=== PATIENT | female | born 1935 | race Caucasian/White ===

== ENCOUNTER → 2017-10-25 | Outpatient (CLI) | payer OTHER ==
[~2017-10-25] MED LIST: ASCO100029 PO; ASPI1TAB57 PO; ATOR20TA15 PO; CALC600T5 PO; ENAL10TA PO; LEVO88TA2 PO; MAGN200T PO; OMEP20TA93 PO; OXYB5TAB8 PO; POTA-255; POTA595T PO; TIZA2TAB PO; VITA10002 PO; VITA100064 PO; VOLT1GEL16
== END ==
LOC: CPRE 11:25
PROVIDERS: ATTEND Orthopaedic Surgery
DX: M17.12 Unilateral primary osteoarthritis, left knee (principal); M79.609 Pain in unspecified limb; I10 Essential (primary) hypertension

== ENCOUNTER 2017-11-16 07:00 | Inpatient (IN) | payer OTHER, MEDICARE ==
[~2017-11-16] VITALS: Ht 152.4 cm; Wt 72.6 kg
[~2017-11-16 07:00] MED LIST changes: -OXYB5TAB8 PO; -POTA-255; -TIZA2TAB PO; -VOLT1GEL16
[2017-11-16] MEDS ORDERED: METOPROLOL TARTRATE 25 MG TAB PO PRN (08:15)
[2017-11-16] MEDS ORDERED: POVIDONE IODINE 5% (ANTISEPSIS KIT) 4 APPLICATIONS EACH NARE PRN (08:15)
[2017-11-16] MEDS ORDERED: SODIUM CHLORID 0.9% 500 ML IV PRN (08:15)
[2017-11-16] MEDS ORDERED: INSULIN HUMAN REGULAR 1,000 UNITS/10 ML VIAL SQ PRN (08:15)
[2017-11-16] MEDS ORDERED: LACTATED RINGER'S 1000 ML IV PRN (08:15)
[2017-11-16] MEDS ORDERED: CHLORHEXIDINE GLUCONATE 2 % 1 PACK (2 CLOTHS) TOPICAL PRN (08:15)
[2017-11-16] MEDS ORDERED: ceFAZolin 2 GM PREMIX 50 ML IV SCH (08:30)
[2017-11-16] MEDS ORDERED: SODIUM CHLORIDE 0.9% IV SCH ×4 (08:30)
[2017-11-16] MEDS ORDERED: EXPAREL PERI-ARTICULAR INJECTION (TOTAL VOL. 100 ML) P-ARTICULR SCH ×2 (08:30)
[2017-11-16] MEDS ORDERED: TRANEXAMIC ACID IV SCH ×4 (08:30)
[2017-11-16] MEDS ORDERED: CHLORHEXIDINE GLUCONATE 4% SOLN 120 ML BTL TOPICAL SCH (08:30)
[2017-11-16] MEDS ORDERED: GENTAMICIN SULFATE 80 MG/2 ML VIAL ONE (08:57)
[2017-11-16] MEDS ORDERED: FAT EMULSION 20% INJ 0 ML ONE (09:13)
[2017-11-16] MEDS ORDERED: BUPIVACAINE LIPOSOME PF 1.3% 20 ML VIAL ONE (09:30)
[2017-11-16 09:42] VITALS: PULSE 71
[2017-11-16] MEDS ORDERED: ZOLPIDEM TARTRATE 5 MG TAB PO PRN (09:45)
[2017-11-16] MEDS ORDERED: MAGNESIUM HYDROXIDE SUSP 30 ML CUP PO PRN (09:45)
[2017-11-16] MEDS ORDERED: TRANEXAMIC ACID INJ 0 MG in SODIUM CHLORIDE 0.9% INJ 100 ML IV SCH (09:45)
[2017-11-16] MEDS ORDERED: Post-op Orders (for Pharmacy) XX ONE (09:45)
[2017-11-16] MEDS ORDERED: MORPHINE SULFATE 2 MG/ML INJ IV PUSH PRN (09:45)
[2017-11-16] MEDS ORDERED: ACETAMINOPHEN/HYDROcodone 325 MG/7.5 MG TAB PO PRN (09:45)
--- NOTE | 2017-11-16 09:49 | HHI.FF ---
Face to Face Verification Diagnosis: (1) Status post total left knee replacement Physical Therapy Gait training Knee: Total knee, Protocol: Left, Gait training, Full weight bearing Left LE Weight Bearing: WB as tolerated Left LE Range of Motion: Active ROM (active, active-assisted and passive range of motion. Range of motion goal is 0 extension to 135 of flexion.) Nursing Nursing: Dressing changes (to start on postoperative day 7) Dressing Changes: Daily dressing change (to start on postoperative day 7), Coverderm/Primapore Additional Instructions Remove Steri-Strips on postoperative day 14. I have seen patient Chata Landeros on 11/16/17. My clinical findings support the need for the requested home health care services because: Ltd mobility - disease progression Limited ability to care for self High risk of falls I certify that my clinical findings support that this patient is homebound because: Post-op weakness Unsteady gait/balance Unsafe to leave home unassisted Trevon Garland MD ([place]) Nov 16, 2017 09:49
[2017-11-16] MEDS ORDERED: ECASA81 PO (09:50)
[2017-11-16] MEDS ORDERED: PROPOFOL 500 MG/50 ML INJ 50 ML ONE (09:58)
[2017-11-16] MEDS: LACTATED RINGER'S 1000 ML INJ 1,000 ML IV SCH ×2 (11:21→19:55)
[2017-11-16] MEDS ORDERED: LACTATED RINGER'S 1000 ML INJ 1,000 ML IV ONE (12:00)
[2017-11-16] MEDS ORDERED: PROPOFOL 200 MG/20 ML AMP IV ONE (12:00)
--- NOTE | 2017-11-16 12:36 | HHI.PR ---
Immediate Post Op Note Procedure Date: Nov 16, 2017 Pre Op Diagnosis: (1) Primary osteoarthritis of left knee Post Op Diagnosis: (1) Primary osteoarthritis of left knee Surgeon: Simone Garland M.D. Plant Operations Manager(s): JOSIAS Meek Procedure: Left total knee arthroplasty using Mil Triathlon prosthesis (uncemented) Findings: There was severe osteoarthritis in the left knee predominantly in the patellofemoral compartment but also in the lateral compartment. There are osteophytes. There is eburnation. Was loss of articular cartilage bone-on- bone. Complications: None Specimen(s) removed: None Estimated blood loss: 50 mL Anesthesia: Regional Block (adductor canal block), Spinal, Local (Exparel) Drains: Hemovac (2) IVF Tourniquet time (min at mmHg) None Patient to: PACU Patient Condition: Good Implant/Devices: SEE IMPLANT LOG (if applicable) Date/Time of Procedure: SEE SURGICAL CARE RECORD Trevon Garland MD (Charles) Nov 16, 2017 12:36
--- NOTE | 2017-11-16 12:42 | PD.OP ---
Operative Report Date of Surgery: Nov 16, 2017 Preoperative Diagnosis: (1) Primary osteoarthritis of left knee Postoperative Diagnosis: (1) Primary osteoarthritis of left knee Procedure: Left total knee arthroplasty using [place] Triathlon prosthesis (uncemented) Anesthesia: Spinal with supplemental adductor block regional and local with Exparel Surgeon: Simone Garland M.D. Occupational Therapist Assistant(s): JOSIAS Meek Operation and Findings: Indications and Findings: This 82-year-old woman has a 21 year history of left knee pain progressively worsening over the past few years. Her ambulation tolerance is 5200 feet. She has patellofemoral symptoms with difficulty standing from a seated position and ascending and descending stairs. Crepitation in her knee. She still uses O cart to lean us in order to. She has not responded to conservative measures including analgesics, anti- inflammatory agents, intra-articular corticosteroids, ambulatory aids and bracing. Physical findings showed significant genu valgum with crepitation on motion particularly in the patellofemoral joint. X-rays show severe osteoarthritis in the left knee particularly in the patellofemoral compartment but also some in the lateral compartment more than the medial compartment. There are osteophytes. There is eburnation. Operative findings: There was severe osteoarthritis in the patellofemoral joint with loss of articular cartilage eroding the lateral facet of the patella and the lateral condyle. There was significant eburnation. There were osteophytes. The remainder of the knee also had degenerative changes. The prosthesis used was a Mil Triathlon prosthesis. The femur was a size 3, cruciate retaining, uncemented. The tibial baseplate was a size 3 Tritanium with a 9 mm cruciate retaining X3 polyethylene spacer. The patella was a size 29 mm asymmetric Tritanium backed. The patient was brought to the clean-air operating suite after an adductor canal block regional had been performed. A spinal anesthetic was administered. The position was supine with a small bolster under the hip on the operative side. A pneumatic tourniquet was applied to the upper thigh. The lower extremity was then prepped with alcohol, Hibiclens and ChloraPrep and draped in the usual manner with the knee draped free. An appropriate timeout procedure was carried out. An incision was made from about 3 fingerbreadths above the superior medial pole of patella down the tibial tubercle on the medial side. The incision was deepened through the subcutaneous tissue to the retinacular structures which were exposed medially and laterally. A medial retinacular incision was then made from the superior middle pole of patella down the tibial tubercle and up into the quadriceps tendon splitting it longitudinally and the medial one third. The patella was reflected. The infrapatellar fat pad was debulked. The anterior cruciate ligament was excised. Medial and lateral meniscectomies were initiated. A fenestration was made in the distal femur for the intramedullary referencing guide. A fenestration was made in the proximal tibia for the intramedullary referencing guide. The distal femoral cutting guide and jig were then assembled for a 5, 8 mm cut. When this was in position, the cutting block was stabilized with pins. The jig was removed. The distal femoral cut was then completed with the oscillating saw. The sizing guide was then positioned in place along Whitesides line and the epicondylar axis and stabilized with pins. The femoral size was then determined with the sizing guide. The 4-in-1 cutting block was then positioned in place. Anterior and posterior cuts were made followed by posterior and anterior chamfer cuts taking care to prevent injury to ligamentous structures. Osteophytes were then trimmed from the distal femur. A bone plug was then placed into the fenestration of the distal femur. The proximal tibia was then exposed. The medial and lateral meniscectomies were completed. The extramedullary proximal tibial cutting guide was then positioned in place and stabilized for rotation. The depth of cut was then verified with a stylus referencing from the predetermined side. The cutting block was stabilized with pins. The jig was removed. The depth of cut was then verified and adjusted appropriately with the use of the spacer block. The proximal tibial cut was then made with the oscillating saw taking care to prevent injury to neurovascular and ligamentous structures. Proximal tibial bone was removed. Local anesthetic was administered with Exparel in the posterior capsule. The tibial baseplate trial was then positioned in place. After verifying the appropriate size, the base plate trial was positioned in place along with its spacer. The trial femoral component was then impacted into place. The alignment was checked. The trial tibial baseplate was then pinned in place on the tibia. Attention was directed to the patella. The patella drill guide was positioned in place for the appropriate sized patella. Patellar drilling was then carried out. The trial patella was positioned in place. The knee was taken through a range of motion which was easily 0 extension to 135 by gravity and 140 with slight pressure. The patella trial was removed. The femoral drill holes were made. The femoral trial prosthesis was removed. The tibial spacer was removed. A bone plug was placed into the proximal tibia. The tibial punch was impacted through the proximal tibial punch guide. This was all removed followed by placement of the tibial drill guide. The tibial drill holes were then made. The guide was removed. The cut ends of bone were then cleaned with pulse lavage. The tibial baseplate was then impacted into place and seated appropriately. The spacer was inserted. The the femoral component was then impacted into place and seated appropriately. The patella component was then seated with the patellar vice and tightened appropriately. The knee was taken through a range of motion which was comparable to the previous range of motion with excellent stability in flexion and extension and appropriate patellofemoral tracking. The remainder of the Exparel was then injected throughout the knee as a local anesthetic. Drains were brought out the superior lateral aspect of the suprapatellar pouch. Wound closure then commenced using 0 Vicryl interrupted [id number] sutures for the capsular and fascial structures, 2-0 Vicryl interrupted simple sutures with buried knots for the subcutaneous tissues and 4- 0 Monocryl, tenuous subcuticular closure for the skin. The wound was then dressed with Steri-Strips followed by Optifoam silver impregnated dressing. Sterile soft roll with a cooling pad and Stephen bandage from the base of the toes to mid thigh were then applied. Patient was then transferred from the operating room to the recovery room in satisfactory condition having tolerated procedure well. Counts are correct. Specimens: None. Estimated blood loss: 50 mL Trevon Garland MD ([place]) Nov 16, 2017 12:42
[2017-11-16] MEDS ORDERED: HYDR-3580 PO (12:52)
[2017-11-16] MEDS ORDERED: DO NOT ADM ANY ANTICOAGULANT DRUGS PRN (13:03)
[2017-11-16] MEDS ORDERED: MIDAZOLAM HCL 2 MG/2 ML VIAL ONE (13:14)
[2017-11-16] MEDS ORDERED: MEPERIDINE HCL 25 MG/ML VIAL ONE (14:45)
[2017-11-16] MEDS: KETOROLAC TROMETHAMINE 30 MG/ML (IVP) VIAL IVP SCH ×2 (15:11→19:56)
--- NOTE | 2017-11-16 15:25 | PD.CONS ---
HPI Service [facility] Consult Requested By Primary Care Physician Asha Lopez MD Diagnoses: History of Present Illness Mrs. Landeros is an 82 year old female. She is here for an elective Left Knee replacement surgery. I am seeing her post op and she is doing well thus far with pain control and no nausea/vomiting. No exacerbations of her underlying medical conditions are present when seen. No complaints from the patient. He reports this is her first major surgery. Review of Systems Constitutional: DENIES: Fatigue, Fever, Chills, Change in appetite Eyes: DENIES: Blurred vision, Diplopia, Eye inflammation Ears, nose, mouth, throat: DENIES: Tinnitus, Hearing loss, Vertigo Respiratory: DENIES: Cough, Wheezing, Shortness of breath Cardiovascular: DENIES: Chest pain, Palpitations, Syncope Gastrointestinal: DENIES: Abdominal pain, Black stools, Bloody stools Musculoskeletal: COMPLAINS OF: Joint pain, Muscle aches, Stiffness, Joint Swelling Integumentary: DENIES: Abnormal pigmentation, Pruritus, Rash, Nail changes Hematologic/lymphatic: DENIES: Bruising, Lymphadenopathy Immunologic/allergic: DENIES: Eczema, Urticaria Neurologic: DENIES: Abnormal gait, Headache, Paresthesias Psychiatric: DENIES: Anxiety, Confusion, Hallucinations Past Family Social History Allergies: Coded Allergies: ragweed pollen (Unverified Allergy, Intermediate, RHINITIS, 10/25/17) tree and shrub pollen (Unverified Allergy, Intermediate, RHINITIS, 10/25/17 ) Past Medical History Hypertension Hyperlipidemia Gastroesophageal reflux disease Hypothyroidism Carpal tunnel syndrome history Dupuytren's disease history Past Surgical History No previous major surgeries Reported Medications Reported Meds & Active Scripts Active Hydrocodone-Acetamin 7.5-325 (Hydrocodone/Acetaminophen) 7.5 Mg-325 Mg Tablet 1 Tab PO Q4H PRN Reported Potassium Gluconate 595 Mg (99 Mg) Tab 1 Tab-Cap PO DAILY Calcium (Calcium Carbonate) 600 Mg Tab 1,200 Mg PO DAILY Vitamin C (Ascorbic Acid) 1,000 Mg Tablet.er 1 Tab PO DAILY Magnesium 200 Mg Tab 250 Mg PO DAILY Vitamin D3 (Cholecalciferol) 1,000 Unit Tab 1,000 Units PO DAILY Vitamin B-12 (Cyanocobalamin) 1,000 Mcg Tab 1,000 Mcg PO DAILY Aspirin 81 (Aspirin) 81 Mg Tabdr 81 Mg PO EVERY OTHER DAY Atorvastatin (Atorvastatin Calcium) 20 Mg Tab 20 Mg PO HS Enalapril (Enalapril Maleate) 10 Mg Tab 10 Mg PO DAILY Omeprazole 20 Mg Tab 20 Mg PO DAILY Levothyroxine (Levothyroxine Sodium) 88 Mcg Tab 88 Mcg PO DAILY Active Ordered Medications Administered Medications Medications (Trade) Dose Ordered Sig/Harjinder Route PRN Reason Start Time Stop Time Status Last Admin Dose Admin Lactated Ringer's 1,000 ml @ 30 mls/hr Q24H PRN IV SEE LABEL COMMENTS 11/16/17 08:15 11/19/17 08:14 11/16/17 08:30 Povidone Iodine (Betadine 5% Antisepsis Kit) 1 applic ORGANIZATIONAL DEVELOPMENT SPECIALIST PRN EACH NARE SEE LABEL COMMENTS 11/16/17 08:15 11/19/17 08:14 11/16/17 09:15 Chlorhexidine Gluconate (Chlorhexidine 2% Cloth) 3 pack ORGANIZATIONAL DEVELOPMENT SPECIALIST PRN TOPICAL SEE LABEL COMMENTS 11/16/17 08:15 11/19/17 08:14 11/16/17 08:15 Chlorhexidine Gluconate (Hibiclens 4% Top Soln) 1 applic ONCE TOPICAL 11/16/17 08:30 11/19/17 08:29 11/16/17 08:15 Cefazolin Sodium/ Dextrose 50 ml @ 100 mls/hr ORGANIZATIONAL DEVELOPMENT SPECIALIST IV 11/16/17 08:30 11/19/17 08:29 11/16/17 11:05 Bupivacaine Liposome 20 ml/ Sodium Chloride 100 ml @ 200 mls/hr ONCE P-ARTICULR 11/16/17 08:30 11/17/17 08:29 11/16/17 11:07 Lactated Ringer's 1,000 ml @ 80 mls/hr [id number] IV 11/16/17 12:00 11/16/17 11:21 Ketorolac Tromethamine (Toradol Inj) 15 mg Q6H IVP 11/16/17 13:00 11/18/17 07:01 11/16/17 15:11 Family History Heart disease and lung disease in father Social History Occasional wine No smoking No illicit drug abuse Physical Exam Vital Signs Vital Signs Date Time Temp Pulse Resp B/P (MAP) Pulse Ox O2 Delivery O2 Flow Rate FiO2 11/16/17 14:00 68 24 163/68 (99) 99 Nasal Cannula 3 11/16/17 13:45 63 16 154/58 (90) 100 Nasal Cannula 3 11/16/17 13:30 65 20 126/56 (79) 98 Nasal Cannula 3 11/16/17 13:15 65 23 141/56 (84) 98 Nasal Cannula 3 11/16/17 13:08 99.2 66 23 143/61 (88) 99 Nasal Cannula 3 11/16/17 09:42 71 11/16/17 09:20 98.1 79 20 148/70 (96) 94 Physical Exam GENERAL: NAD, A&Ox3 HEAD: Normocephalic. NECK: Supple, trachea midline. No lymphadenopathy. EYES: No scleral icterus. No injection or drainage. CARDIOVASCULAR: Regular rate and rhythm without murmurs, gallops, or rubs. RESPIRATORY: Breath sounds equal bilaterally. No accessory muscle use. GASTROINTESTINAL: Abdomen soft, non-tender, nondistended. MUSCULOSKELETAL: No cyanosis, or edema. Left leg in mobilizer. SKIN: Warm and dry. NEURO: No focal neurological deficitis. Assessment and Plan Problem List: (1) Status post total left knee replacement ICD Code: Z96.652 - Presence of left artificial knee joint (2) Primary osteoarthritis of left knee ICD Code: M17.12 - Unilateral primary osteoarthritis, left knee Assessment and Plan 82-year-old female status post left knee replacement surgery Status post left knee replacement surgery Continue pain treatments as needed Physical therapy Orthopedic surgeon following Anticoagulation per orthopedic surgeon discretion Check hemoglobin in a.m. Hypertension Continue baseline treatment Follow blood pressures Adjust treatments as needed Hyperlipidemia Continue present treatment Follow as an outpatient Gastroesophageal reflux disease Hypothyroidism Carpal tunnel syndrome history Dupuytren's disease history No change to baseline status Follow-up as an outpatient DVT prophylaxis Orthopedic surgeon discretion, postop Baljinder Vera MD Nov 16, 2017 15:25
[2017-11-16] MEDS ORDERED: *morphine SULFATE 10 MG/ML PERIprocedure ONLY ONE (15:40)
--- NOTE | 2017-11-16 15:49 | RADRPT ---
EXAM DATE/TIME: 11/16/2017 13:20 [place] COMPARISON: No previous studies available for comparison. INDICATIONS : Post-op left total knee replacement. MEDICAL HISTORY : None. SURGICAL HISTORY : None. ENCOUNTER: Initial ACUITY: 1 day PAIN SCORE: 0/10 LOCATION: Left knee FINDINGS: Two view examination of the left knee demonstrates a total knee arthroplasty. Components are appropri ate position. No fracture. Suprapatellar drain is identified. CONCLUSION: Appropriate postoperative appearance of the left knee status post total arthroplasty. No fractur e. Jordy Shannon MD on November 16, 2017 at 15:45 Board Certified Radiologist. This report was verified electronically.
[2017-11-16] MEDS ORDERED: HYDROmorphone HCL PF 2 MG/ML VIAL ONE (17:00)
[2017-11-16] MEDS: ASPIRIN EC 81 MG TABEC PO SCH (19:33)
[2017-11-16] MEDS: ACETAMINOPHEN/HYDROcodone 325 MG/7.5 MG TAB PO PRN (19:55)
[2017-11-16] MEDS: ATORVASTATIN 20 MG TAB PO SCH (19:56)
[2017-11-16 20:00] VITALS: BP_SYST 117; BP_SYST 119; BP_DIAS 51; BP_DIAS 59; PULSE 58; PULSE 65; RESP 16; TEMP 95.7; TEMP 96.3; O2SAT 100; O2SAT 98
[2017-11-17] VITALS: BP 128/69; PULSE 69; RESP 16; TEMP 96.8; O2SAT 97
[2017-11-17] MEDS: KETOROLAC TROMETHAMINE 30 MG/ML (IVP) VIAL IVP SCH ×4 (00:08→19:40)
[2017-11-17 04:00] VITALS: BP 119/59; PULSE 58; RESP 16; TEMP 96.3; O2SAT 98
[2017-11-17] MEDS: LEVOTHYROXINE SODIUM 88 MCG TAB PO SCH (06:11)
--- NOTE | 2017-11-17 06:45 | PD.ORT.PN ---
Subjective Post Op Day #: 1 Subjective Remarks She is doing well. She has minimal complaints related to the knee. She has very little pain at this time. Range of Motion -10 extension to 75 of flexion. Distance Walked 5 sidesteps with physical therapy. Objective Vitals Vital Signs Date Time Temp Pulse Resp B/P (MAP) Pulse Ox O2 Delivery O2 Flow Rate FiO2 11/16/17 19:53 100 Nasal Cannula 2.00 11/16/17 17:00 77 16 135/62 (86) 94 Nasal Cannula 3 11/16/17 16:00 98.0 73 13 139/62 (87) 98 Nasal Cannula 3 11/16/17 15:00 75 16 148/64 (92) 97 Nasal Cannula 3 11/16/17 14:30 66 17 163/68 (99) 100 Nasal Cannula 3 11/16/17 14:00 68 24 163/68 (99) 99 Nasal Cannula 3 11/16/17 13:45 63 16 154/58 (90) 100 Nasal Cannula 3 11/16/17 13:30 65 20 126/56 (79) 98 Nasal Cannula 3 11/16/17 13:15 65 23 141/56 (84) 98 Nasal Cannula 3 11/16/17 13:08 99.2 66 23 143/61 (88) 99 Nasal Cannula 3 11/16/17 09:42 71 11/16/17 09:20 98.1 79 20 148/70 (96) 94 I/O 11/16/17 11/16/17 11/16/17 11/17/17 11/17/17 11/17/17 07:00 15:00 23:00 07:00 15:00 23:00 Intake Total 1500 ml 1356 ml 1000 ml Output Total 50 ml 310 ml 60 ml Balance 1450 ml 1046 ml 940 ml Intake IV Total 1356 ml 1000 ml Other 1500 ml Output Urine Total 150 ml Drainage Total 160 ml 60 ml Estimated Blood Loss 50 ml # Voids 1 Imaging Last 24 hours Impressions Knee X-Ray 11/16/1741 Signed Impressions: Service Date/Time: Thursday, November 16, 2017 13:20 - CONCLUSION: Appropriate postoperative appearance of the left knee status post total arthroplasty. No fracture. Jordy Shannon MD Objective Remarks She is resting comfortably, supine in bed, in the [facility]. The neurovascular status is intact. The dressing is dry and intact. Assessment & Plan Ortho Post Op Day #: 1 Problem List: (1) Status post total left knee replacement ICD Codes: Z96.652 - Presence of left artificial knee joint Plan: Continue postop care and PT. Assessment and Plan Condition: Good. Orthopedically stable. DVT prophylaxis: Sequentials, SHANTEL stockings, aspirin 81 mg twice daily. Discharge plans: Home with home health care with a small possibility of half-way care. An appointment was scheduled through the office. Prescriptions: [place] 7.5/325 Trevon Garland MD ([place]) Nov 17, 2017 06:45
[2017-11-17 08:00] VITALS: BP 131/62; PULSE 65; RESP 18; TEMP 97.1; O2SAT 95
[2017-11-17] MEDS: PANTOPRAZOLE SOD 20 MG DELAYED RELEASE TAB PO SCH (08:06)
[2017-11-17] MEDS: MAGNESIUM OXIDE 400 MG TAB PO SCH (08:06)
[2017-11-17] MEDS: ENALAPRIL MALEATE 10 MG TAB PO SCH (08:06)
[2017-11-17] MEDS: ASCORBIC ACID 500 MG TAB PO SCH (08:06)
[2017-11-17] MEDS: CALCIUM CARBONATE 1.25 GM (CA 500 MG) TAB PO SCH (08:07)
[2017-11-17] MEDS: CYANOCOBALAMIN 1,000 MCG TAB PO SCH (08:07)
[2017-11-17] MEDS: ACETAMINOPHEN/HYDROcodone 325 MG/7.5 MG TAB PO PRN ×2 (08:07→19:41)
--- NOTE | 2017-11-17 08:34 | HHI.DS ---
Discharge Summary Admission Date Nov 16, 2017 at 07:32 Discharge Date: Nov 18, 2017 Admitting Diagnosis Primary osteoarthritis, left knee. Diagnosis: (1) Status post total left knee replacement Diagnosis: Principal ICD Codes: Z96.652 - Presence of left artificial knee joint (2) Primary osteoarthritis of left knee Diagnosis: Principal ICD Codes: M17.12 - Unilateral primary osteoarthritis, left knee Status: Resolved Procedures Left total knee arthroplasty with [place] Triathlon prosthesis on 11/16/2017 Brief History This is a 82 year old female patient has had long-standing arthritis in her left knee which has been nonresponsive to conservative measures as detailed in the history and physical examination. She has limitation of ambulation and activities of daily living because of this. Physical findings showed crepitation on range of motion with tenderness on motion and lateral laxity. X- rays showed severe osteoarthritis in the patellofemoral joint especially but also throughout the knee. Significant Findings Laboratory Tests Test 11/17/17 09:02 11/18/17 05:00 Hemoglobin 10.9 GM/DL (11.6-15.3) 10.7 GM/DL (11.6-15.3) Hematocrit 32.4 % (35.0-46.0) 31.7 % (35.0-46.0) Imaging Last 72 hours Impressions Knee X-Ray 11/16/17 0941 Signed Impressions: Service Date/Time: Thursday, November 16, 2017 13:20 - CONCLUSION: Appropriate postoperative appearance of the left knee status post total arthroplasty. No fracture. Jordy Shannon MD PE at Discharge She is resting comfortably, supine in bed, in the [facility]. The neurovascular status is intact. The dressing is dry and intact. There is no edema or erythema. Hospital Course The patient was admitted as noted above. The above noted operative procedure was carried out that day. Preoperatively prophylactic antibiotics were administered Ancef according to protocol. These were continued postoperatively. The patient also received tranexamic acid to help with hemostasis according to protocol. In the postanesthesia care unit a continuous passive motion device was initiated. Also initiated were mechanical methods of DVT prophylaxis in the form of SHANTEL stockings and sequentials. Physical therapy was initiated on the day of surgery. On postoperative day #1 physical therapy continued. The use of the continuous passive motion device continued. DVT prophylaxis with aspirin 81 mg twice daily was initiated at this time. The patient continued physical therapy throughout the hospitalization. The distance walked and range of motion improved throughout the hospitalization. On postoperative day 1, she walked 50 feet after an initial 15 feet. The patient was discharged on postoperative day 2 with the disposition being to home with home health care. An appointment for follow-up was made prior to admission. Pt Condition on Discharge: Good Discharge Disposition: Disch w/ Home Health Serv Discharge Instructions Diet Instructions: As Tolerated, No Restrictions Activities You Can Perform: Full Weight Bearing, Shower Only-No Bath Activities to Avoid: Lifting/Bending, Strenuous Activity, Bathing, Driving Follow up Referrals: Orthopedics with Trevon Garland MD ([place]) New Medications: Aspirin (Aspirin DR) 81 Mg Tabdr 81 MG PO BID for Prevent Blood Clot for 30 Days, #60 TAB Hydrocodone/Acetaminophen (Hydrocodone-Acetamin 7.5-325) 7.5 Mg-325 Mg Tablet 1 TAB PO Q4H PRN for PAIN SCALE 1 TO 10, #50 TAB Continued Medications: Ascorbic Acid (Vitamin C) 1,000 Mg Tablet.er 1 TAB PO DAILY Atorvastatin (Atorvastatin) 20 Mg Tab 20 MG PO HS for Cholesterol Management, #30 TAB 0 Refills Calcium Carbonate (Calcium) 600 Mg Tab 1200 MG PO DAILY Cholecalciferol (Vitamin D3) 1,000 Unit Tab 1000 UNITS PO DAILY for Nutritional Supplement, #1 BOTTLE 0 Refills Cyanocobalamin (Vitamin B-12) 1,000 Mcg Tab 1000 MCG PO DAILY for Nutritional Supplement, #1 BOTTLE 0 Refills Enalapril (Enalapril) 10 Mg Tab 10 MG PO DAILY, #30 TAB 0 Refills Levothyroxine (Levothyroxine) 88 Mcg Tab 88 MCG PO DAILY for Thyroid, #30 TAB 0 Refills Magnesium (Magnesium) 200 Mg Tab 250 MG PO DAILY, TAB Omeprazole (Omeprazole) 20 Mg Tab 20 MG PO DAILY, #30 TAB 0 Refills Potassium Gluconate (Potassium Gluconate) 595 Mg (99 Mg) Tab 1 TAB-CAP PO DAILY Discontinued Medications: Aspirin (Aspirin 81) 81 Mg Tabdr 81 MG PO EVERY OTHER DAY, TAB 0 Refills Trevon Garland MD ([place]) Nov 17, 2017 08:34
[2017-11-17] MEDS: CHOLECALCIFEROL (VIT D3) 1000 UNIT TAB PO SCH (09:00)
[2017-11-17] MEDS ORDERED: POTASSIUM GLUCONATE PO SCH (09:00)
[2017-11-17 10:44] LABS: HEMATOCRIT 32.4 % (35.0-46.0); HEMOGLOBIN 10.9 GM/DL (11.6-15.3)
[2017-11-17] MEDS: ONDANSETRON HCL 4 MG/2 ML VIAL IVP PRN ×2 (11:52→19:41)
[2017-11-17 12:00] VITALS: BP 132/57; PULSE 66; RESP 18; TEMP 97.1; O2SAT 94
[2017-11-17] MEDS: ASPIRIN EC 81 MG TABEC PO SCH ×2 (12:03→19:41)
[2017-11-17] MEDS: LACTATED RINGER'S 1000 ML INJ 1,000 ML IV SCH ×2 (13:00→19:34)
[2017-11-17] MEDS: DOCUSATE SODIUM 100 MG CAP PO SCH (19:40)
[2017-11-17] MEDS: ATORVASTATIN 20 MG TAB PO SCH (19:40)
[2017-11-17 20:00] VITALS: BP 142/64; PULSE 74; RESP 17; TEMP 97.4; O2SAT 95
[2017-11-18] VITALS: BP 127/58; PULSE 85; RESP 16; TEMP 97.8
[2017-11-18] MEDS: KETOROLAC TROMETHAMINE 30 MG/ML (IVP) VIAL IVP SCH ×2 (02:04→06:19)
[2017-11-18 04:00] VITALS: BP 127/60; PULSE 77; RESP 16; TEMP 97.2; O2SAT 90
[2017-11-18] MEDS: LEVOTHYROXINE SODIUM 88 MCG TAB PO SCH (06:19)
[2017-11-18 06:43] LABS: HEMATOCRIT 31.7 % (35.0-46.0); HEMOGLOBIN 10.7 GM/DL (11.6-15.3)
--- NOTE | 2017-11-18 06:49 | PD.ORT.PN ---
Subjective Post Op Day #: 2 Subjective Remarks She is doing better today than yesterday. She has minimal complaints related to the knee. She has very little pain at this time. Range of Motion -11 extension to 87 of flexion. Distance Walked 15 feet, then 50 feet with physical therapy. Objective Vitals Vital Signs Date Time Temp Pulse Resp B/P (MAP) Pulse Ox O2 Delivery O2 Flow Rate FiO2 11/18/17 04:00 97.2 77 16 127/60 (82) 90 11/18/17 00:00 97.8 85 16 127/58 (81) 11/17/17 20:00 97.4 74 17 142/64 (90) 95 11/17/17 12:00 97.1 66 18 132/57 (82) 94 11/17/17 08:00 97.1 65 18 131/62 (85) 95 I/O 11/17/17 11/17/17 11/17/17 11/18/17 11/18/17 11/18/17 07:00 15:00 23:00 07:00 15:00 23:00 Intake Total 1000 ml 600 ml Output Total 60 ml 120 ml Balance 940 ml 480 ml Intake Oral 600 ml IV Total 1000 ml Drainage Total 60 ml 120 ml # Voids 4 Result Diagram: 11/18/17 0500 Imaging Last 24 hours Impressions Knee X-Ray 11/16/17 0941 Signed Impressions: Service Date/Time: Thursday, November 16, 2017 13:20 - CONCLUSION: Appropriate postoperative appearance of the left knee status post total arthroplasty. No fracture. Jordy Shannon MD Procedures Left total knee arthroplasty with Mil Triathlon prosthesis on 11/16/2017 Objective Remarks She is resting comfortably, supine in bed, in the CPM. The neurovascular status is intact. The dressing is dry and intact. There is no edema or erythema. Assessment & Plan Ortho Post Op Day #: 2 Problem List: (1) Status post total left knee replacement ICD Codes: Z96.652 - Presence of left artificial knee joint Plan: Continue postop care and PT. (2) Primary osteoarthritis of left knee ICD Codes: M17.12 - Unilateral primary osteoarthritis, left knee Status: Resolved Assessment and Plan Condition: Good. Orthopedically stable. DVT prophylaxis: Sequentials, SHANTEL stockings, aspirin 81 mg twice daily. Discharge plans: Home with home health care probably today. An appointment was scheduled through the office. Prescriptions: David 7.5/325 Trevon Garland MD ([facility]) Nov 18, 2017 06:49
[2017-11-18 08:00] VITALS: BP 129/58; PULSE 83; RESP 18; TEMP 98; O2SAT 92
[2017-11-18] MEDS: CHOLECALCIFEROL (VIT D3) 1000 UNIT TAB PO SCH (09:34)
[2017-11-18] MEDS: CYANOCOBALAMIN 1,000 MCG TAB PO SCH (09:34)
[2017-11-18] MEDS: ASPIRIN EC 81 MG TABEC PO SCH (09:34)
[2017-11-18] MEDS: MAGNESIUM OXIDE 400 MG TAB PO SCH (09:34)
[2017-11-18] MEDS: CALCIUM CARBONATE 1.25 GM (CA 500 MG) TAB PO SCH (09:34)
[2017-11-18] MEDS: ASCORBIC ACID 500 MG TAB PO SCH (09:34)
[2017-11-18] MEDS: PANTOPRAZOLE SOD 20 MG DELAYED RELEASE TAB PO SCH (09:34)
[2017-11-18] MEDS: DOCUSATE SODIUM 100 MG CAP PO SCH (09:34)
[2017-11-18] MEDS: ENALAPRIL MALEATE 10 MG TAB PO SCH (09:34)
[2017-11-18] MEDS: ACETAMINOPHEN/HYDROcodone 325 MG/7.5 MG TAB PO PRN ×2 (09:34→13:20)
[2017-11-18 12:00] VITALS: BP 140/75; PULSE 78; RESP 16; TEMP 96.6; O2SAT 95
== END 2017-11-18 13:50 | disposition home health service (06) | DRG 470 ==
LOC: EDSTATUS 07:00 → HSDI 07:32 → N06B 17:39
PROVIDERS: ADMIT Orthopaedic Surgery; ATTEND Orthopaedic Surgery
PROC: 3E0T3BZ Introduction of Anesthetic Agent into Peripheral Nerves and Plexi, Percutaneous Approach (ICD-10-PCS; 2017-11-16)
PROC: 0SRD0JA Replacement of Left Knee Joint with Synthetic Substitute, Uncemented, Open Approach (ICD-10-PCS; principal; 2017-11-16 10:14)
DX: M17.12 Unilateral primary osteoarthritis, left knee (principal); I10 Essential (primary) hypertension; I25.10 Atherosclerotic heart disease of native coronary artery without angina pectoris; M21.062 Valgus deformity, not elsewhere classified, left knee; E03.9 Hypothyroidism, unspecified; M51.36 Other intervertebral disc degeneration, lumbar region; K21.9 Gastro-esophageal reflux disease without esophagitis; E78.5 Hyperlipidemia, unspecified; Z87.891 Personal history of nicotine dependence; Z95.5 Presence of coronary angioplasty implant and graft; Z79.82 Long term (current) use of aspirin
CPT/HCPCS: 73560; 85014; 85018; 86077; 86850; 86870; 86900; 86901; 86922; 94150; C1776; C9290; J0690; J1170; J1580; J1885; J2175; J2250; J2270; J2405; J3010; J7120

== ENCOUNTER 2017-11-21 09:43 | Emergency (ER) | payer MEDICARE, OTHER ==
[~2017-11-21] VITALS: Ht 154.9 cm; Wt 75.0 kg
[~2017-11-21 09:43] MED LIST changes: -ASPI1TAB57 PO; +ECASA81 PO; +HYDR-3580 PO
[2017-11-21 09:45] VITALS: BP 150/91; PULSE 86; RESP 16; TEMP 97.7; O2SAT 98
--- NOTE | 2017-11-21 10:30 | PD ---
HPI Chief Complaint: Complaint Time Seen by Provider: 10:22 Travel History International Travel<30 days: No Contact w/Intl Traveler<30days: No Traveled to known affect area: No History of Present Illness HPI This is a 82-year-old female here with 2 chief complaints. She is complaining of foul-smelling urine 1 day and left knee swelling 1 day. She denies fever or chills. Patient had total knee replacement [address] Marcial. She denies increasing pain, warmth, erythema of the knee. She reports that it is slightly more swollen after doing her first physical therapy exercises yesterday. After the surgery patient declined going to an outpatient rehabilitation after discharge from the hospital. She requested to go home to care for herself. Her daughter who is an RN is present today and states her mother is unable to care for herself. She reports that her mother is unable to get out of bed to the bedside commode. She is not ambulating. She is unable to care for her and is requesting that she be placed in a rehabilitation. Symptoms severity is moderate. Pain is aggravated by movement and slightly relieved with rest PFSH Past Medical History Hx Anticoagulant Therapy: Yes (BABY ASA QOD) Arthritis: Yes Cancer: No Cardiac Catheterization: Yes Cardiovascular Problems: Yes (STENT) High Cholesterol: Yes Chest Pain: Yes Coronary Artery Disease: Yes Diabetes: No Endocrine: Yes GERD: Yes Genitourinary: Yes (Recent UTI) Hepatitis: No Hiatal Hernia: Yes Hypertension: Yes Immune Disorder: No Musculoskeletal: Yes (Fractured L1 verbre 2010, Carpal tunnel ) Neurologic: No Psychiatric: No Reproductive: No Respiratory: No Myocardial Infarction: Yes (x1 1998) Thyroid Disease: Yes (Hypothroidism) Tetanus Vaccination: > 5 Years Influenza Vaccination: Yes ?: Not Menopausal: Yes Past Surgical History Abdominal Surgery: Yes (Gall badder) AICD: No Appendectomy: Yes Body Medical Devices: Cardiac stent Cardiac Surgery: Yes (Cardiac stents) Section: Yes (x1) Cholecystectomy: Yes Coronary Stent: Yes (x1 ) Ear Surgery: No Endocrine Surgery: No Eye Surgery: Yes (Bilateral cateracts) Genitourinary Surgery: No Gynecologic Surgery: Yes () Joint Replacement: Yes (left knee replacement) Neurologic Surgery: No Oral Surgery: Yes (Tonsillectomy) Pacemaker: No Other Surgery: Yes (bilat hands carpel tunnel) Social History Alcohol Use: Yes (wine daily) Tobacco Use: No (quit in 1997 smoked cigs 1 ppd) Substance Use: No Allergies-Medications (Allergen,Severity, Reaction): Coded Allergies: ragweed pollen (Unverified Allergy, Intermediate, RHINITIS, 11/21/17) tree and shrub pollen (Unverified Allergy, Intermediate, RHINITIS, 11/21/17 ) Reported Meds & Prescriptions Reported Meds & Active Scripts Active Hydrocodone-Acetamin 7.5-325 (Hydrocodone/Acetaminophen) 7.5 Mg-325 Mg Tablet 1 Tab PO Q4H PRN Aspirin DR (Aspirin) 81 Mg Tabdr 81 Mg PO BID 30 Days Reported Potassium Gluconate 595 Mg (99 Mg) Tab 1 Tab-Cap PO DAILY Calcium (Calcium Carbonate) 600 Mg Tab 1,200 Mg PO DAILY Vitamin C (Ascorbic Acid) 1,000 Mg Tablet.er 1 Tab PO DAILY Magnesium 200 Mg Tab 250 Mg PO DAILY Vitamin D3 (Cholecalciferol) 1,000 Unit Tab 1,000 Units PO DAILY Vitamin B-12 (Cyanocobalamin) 1,000 Mcg Tab 1,000 Mcg PO DAILY Atorvastatin (Atorvastatin Calcium) 20 Mg Tab 20 Mg PO HS Enalapril (Enalapril Maleate) 10 Mg Tab 10 Mg PO DAILY Omeprazole 20 Mg Tab 20 Mg PO DAILY Levothyroxine (Levothyroxine Sodium) 88 Mcg Tab 88 Mcg PO DAILY Review of Systems Except as stated in HPI: all other systems reviewed are Neg General / Constitutional: No: Fever Eyes: No: Visual changes HENT: No: Headaches Cardiovascular: No: Chest Pain or Discomfort Respiratory: No: Shortness of Breath Gastrointestinal: No: Abdominal Pain Genitourinary: Positive: Frequency, Other Musculoskeletal: Positive: Pain (left knee pain) Physical Exam Narrative GENERAL: Alert and well-appearing 82-year-old female. SKIN: Warm and dry. Vertical surgical incision over the anterior aspect of the knee with Steri-Strips in place. No surrounding erythema, induration/ fluctuance or drainage. HEAD: Atraumatic. Normocephalic. EYES: Pupils equal and round. No scleral icterus. No injection or drainage. ENT: Mucous membranes pink and moist. NECK: Supple CARDIOVASCULAR: Regular rate and rhythm. RESPIRATORY: No accessory muscle use. Clear to auscultation. Breath sounds equal bilaterally. GASTROINTESTINAL: Abdomen soft, non-tender, nondistended. No CVA tenderness MUSCULOSKELETAL: Extremities without clubbing, cyanosis. No obvious deformities. Left lower extremity: Surgical scar over the anterior aspect of the left knee without evidence of infection. Notable edema to the anterior aspect of the left knee which is consistent with postop surgical swelling. No posterior knee tenderness. No calf tenderness. negative Homans sign. No pedal edema. NEUROLOGICAL: Awake and alert. No obvious cranial nerve deficits. Motor grossly within normal limits. Normal speech. Data Data Last Documented VS Vital Signs Date Time Temp Pulse Resp B/P (MAP) Pulse Ox O2 Delivery O2 Flow Rate FiO2 11/21/17 15:00 79 16 146/58 (87) 100 Room Air 11/21/17 09:45 97.7 Orders Orders Urinalysis - C+S If Indicated (11/21/17 09:49) Basic Metabolic Panel (Bmp) (11/21/17 10:46) Complete Blood Count With Diff (11/21/17 10:46) (Hub Use Only)Inp Phy Cons/Ref (11/21/17 ) Consult Pt Eval & Treat (11/21/17 11:58) Acetamin-Hydrocod 325-7.5 Mg ([place] 7.5 (11/21/17 14:30) Labs Laboratory Tests Test 11/21/17 10:30 11/21/17 11:00 11/21/17 12:05 Urine Collection Type CLEAN CATCH Urine Color YELLOW Urine Turbidity SLIGHT Urine pH 7.5 Urine Specific [place] 1.016 Urine Protein NEG mg/dL Urine Glucose (UA) NEG mg/dL Urine Ketones NEG mg/dL Urine Occult Blood NEG Urine Nitrite NEG Urine Bilirubin NEG Urine Leukocyte Esterase NEG Urine Squamous Epithelial Cells 0-5 /hpf Urine Amorphous Sediment FEW Microscopic Urinalysis Comment CULT NOT INDICATED Urine Collection Time 1030 Blood Urea Nitrogen 10 MG/DL Creatinine 0.74 MG/DL Random Glucose 114 MG/DL Calcium Level 8.1 MG/DL Sodium Level 138 MEQ/L Potassium Level 4.1 MEQ/L Chloride Level 102 MEQ/L Carbon Dioxide Level 31.2 MEQ/L Anion Gap 5 MEQ/L Estimat Glomerular Filtration Rate 75 ML/MIN White Blood Count 6.2 TH/MM3 Red Blood Count 2.76 MIL/MM3 Hemoglobin 8.5 GM/DL Hematocrit 25.4 % Mean Corpuscular Volume 92.0 FL Mean Corpuscular Hemoglobin 30.8 PG Mean Corpuscular Hemoglobin Concent 33.4 % Red Cell Distribution Width 14.3 % Platelet Count 196 TH/MM3 Mean Platelet Volume 6.9 FL Neutrophils (%) (Auto) 75.6 % Lymphocytes (%) (Auto) 11.4 % Monocytes (%) (Auto) 6.7 % Eosinophils (%) (Auto) 2.7 % Basophils (%) (Auto) 3.6 % Neutrophils # (Auto) 4.7 TH/MM3 Lymphocytes # (Auto) 0.7 TH/MM3 Monocytes # (Auto) 0.4 TH/MM3 Eosinophils # (Auto) 0.2 TH/MM3 Basophils # (Auto) 0.2 TH/MM3 CBC Comment AUTO DIFF Differential Comment AUTO DIFF CONFIRMED Hematology Comments MDM Medical Decision Making Medical Screen Exam Complete: Yes Emergency Medical Condition: Yes Differential Diagnosis UTI, post surgical infection, postsurgical swelling, Narrative Course This is an 82-year-old female here requesting placement in a rehabilitation to help assist her recover from a total knee replacement [address] Marcial. Her physical exam is reassuring. The surgical site appears to be healing without evidence of infection. UA was negative for infection. CBC showed no leukocytosis. Mild anemia with hemoglobin 8.5 likely a result of surgery. BMP without acute abnormality. Case management consult to help place patient on rehabilitation. Patient was evaluated by physical therapy and ambulate 30 feet as a walker. 1545: Case management is still waiting for approval from patient's insurance company for placement in longterm facility. The family was Given the option of self-pay which they declined requesting to take the patient home where her daughter who is a nurse can care for her until the insurance company approves her stay at a rehabilitation. Diagnosis Primary Impression: Pain at surgical site Referrals: Trevon Garland MD ([facility]) Disposition: DISCHARGE HOME Condition: Stable Zoey Strong JONATHAN Nov 21, 2017 10:30
[2017-11-21 10:35] LABS: BILIRUBIN, URINE NEG (NEG); BLOOD, URINE NEG (NEG); GLUCOSE,URINE NEG (NEG); KETONE, URINE NEG (NEG); NITRITE,URINE NEG (NEG); PH, URINE 7.5 (5.0-8.5); URINE LEUKOCYTE ESTERASE NEG (NEG)
[2017-11-21 10:40] LABS: AMORPHOUS SEDIMENT, URINE FEW; SQUAMOUS EPITHELIAL CELL URINE 0-5 /hpf (0-5); URINE COLOR YELLOW (YELLW/STRAW)
[2017-11-21 11:18] LABS: BICARBONATE 31.2 MEQ/L (21.0-32.0); CALCIUM 8.1 MG/DL (8.5-10.1)
[2017-11-21 11:22] LABS: CREATININE 0.74 MG/DL (0.50-1.00)
[2017-11-21 12:01] LABS: AUTOMATED NEUTROPHIL # 4.7 TH/MM3 (1.8-7.7); BASOPHIL # 0.2 TH/MM3 (0-0.2); BASOPHIL % 3.6 % (0.0-2.0); EOSINOPHIL # 0.2 TH/MM3 (0-0.4); EOSINOPHIL % 2.7 % (0.0-4.0); HEMATOCRIT 25.4 % (35.0-46.0); HEMOGLOBIN 8.5 GM/DL (11.6-15.3); LYMPH % 11.4 % (9.0-44.0); LYMPHOCYTE # 0.7 TH/MM3 (1.0-4.8); MEAN CORPUSCULAR HEMOGLOBIN 30.8 PG (27.0-34.0); MEAN CORPUSCULAR HGB CONC 33.4 % (32.0-36.0); MEAN PLATELET VOLUME 6.9 FL (7.0-11.0); MONO % 6.7 % (0.0-8.0); MONOCYTE # 0.4 TH/MM3 (0-0.9); NEUT % 75.6 % (16.0-70.0); PLATELET COUNT 196 TH/MM3 (150-450); RED BLOOD COUNT 2.76 MIL/MM3 (4.00-5.30); RED CELL DISTRIBUTION WIDTH 14.3 % (11.6-17.2); WHITE BLOOD COUNT 6.2 TH/MM3 (4.0-11.0)
[2017-11-21] MEDS ORDERED: ACETAMINOPHEN/HYDROcodone 325 MG/7.5 MG TAB PO ONE (14:30)
[2017-11-21 15:00] VITALS: BP 146/58; PULSE 79; RESP 16; O2SAT 100
[2017-11-21 16:01] VITALS: RESP 16
[2017-11-22] MEDS ORDERED: ASPI-516 PO (11:00)
== END 2017-11-21 18:13 | disposition home or self-care (01) ==
LOC: PHEFT 09:43
DX: T84.84XA Pain due to internal orthopedic prosthetic devices, implants and grafts, initial encounter (principal); I10 Essential (primary) hypertension; I25.10 Atherosclerotic heart disease of native coronary artery without angina pectoris; I25.2 Old myocardial infarction; E78.00 Pure hypercholesterolemia, unspecified; E03.9 Hypothyroidism, unspecified; M19.90 Unspecified osteoarthritis, unspecified site; Z96.652 Presence of left artificial knee joint; Z95.5 Presence of coronary angioplasty implant and graft; Z87.891 Personal history of nicotine dependence; Z79.899 Other long term (current) drug therapy
CPT/HCPCS: 80048; 81001; 85025; 97162; 99283; G8987; G8988

== ENCOUNTER 2017-11-22 07:46 | Inpatient (IN) | payer OTHER, MEDICARE ==
[2017-11-22] VITALS (14 sets, daily range): BP systolic 111–175; BP diastolic 49–82; PULSE 93–108; RESP 18–25; TEMP 97.8–99.8; O2SAT 86–100
[~2017-11-22] VITALS: Ht 152.4 cm; Wt 78.3 kg
--- NOTE | 2017-11-22 08:22 | PD ---
HPI Chief Complaint: General Weakness Time Seen by Provider: 08:02 Travel History International Travel<30 days: No Contact w/Intl Traveler<30days: No Traveled to known affect area: No History of Present Illness HPI This is an 82-year-old female who is 6 days postoperative for left knee replacement, presents here with complaint of weakness and mild shortness of breath. Apparently the patient was seen yesterday in [place] for questionable UTI and pain at the surgical site. At that time, the discussion was made that she will likely need to be in a rehab facility. Unfortunately since it was the weekend and the patient case manager was not able to contact the insurance company, the only option at that time was to pay out of pocket for rehab until insurance could be contacted. The decision was made to take the patient home since her daughter is an RN and would be able to care for her. The patient denies any fevers, chills. She denies any history of previous lung problems. She states that she was constipated for several days and daughter was giving her stool softeners. She reports a large bowel movement today. There is no reported dysuria or frequency. According to the records yesterday, she was having darker foul-smelling urine and there was concern that there was a UTI. Urinalysis yesterday was negative for infection. There is no reported cough. She does have shortness of breath. There is no chest pain, chest pressure. PFSH Past Medical History Hx Anticoagulant Therapy: Yes (BABY ASA QOD) Arthritis: Yes Cancer: No Cardiac Catheterization: Yes Cardiovascular Problems: Yes (STENT) High Cholesterol: Yes Chest Pain: Yes Coronary Artery Disease: Yes Diabetes: No Endocrine: Yes GERD: Yes Genitourinary: Yes (Recent UTI) Hepatitis: No Hiatal Hernia: Yes Hypertension: Yes Immune Disorder: No Musculoskeletal: Yes (Fractured L1 verbre 2009, Carpal tunnel ) Neurologic: No Psychiatric: No Reproductive: No Respiratory: No Myocardial Infarction: Yes (x1 1998) Thyroid Disease: Yes (Hypothroidism) Menopausal: Yes Past Surgical History Abdominal Surgery: Yes (Gall badder) AICD: No Appendectomy: Yes Body Medical Devices: Cardiac stent Cardiac Surgery: Yes (Cardiac stents) Section: Yes (x1) Cholecystectomy: Yes Coronary Stent: Yes (x1 ) Ear Surgery: No Endocrine Surgery: No Eye Surgery: Yes (Bilateral cateracts) Genitourinary Surgery: No Gynecologic Surgery: Yes () Joint Replacement: Yes (left knee replacement) Neurologic Surgery: No Oral Surgery: Yes (Tonsillectomy) Pacemaker: No Other Surgery: Yes (bilat hands carpel tunnel) Social History Alcohol Use: Yes (wine daily) Tobacco Use: No (quit in 1997 smoked cigs 1 ppd) Substance Use: No Allergies-Medications (Allergen,Severity, Reaction): Coded Allergies: ragweed pollen (Verified Allergy, Intermediate, RHINITIS, 11/22/17) tree and shrub pollen (Verified Allergy, Intermediate, RHINITIS, 11/22/17) Reported Meds & Prescriptions Reported Meds & Active Scripts Active Hydrocodone-Acetamin 7.5-325 (Hydrocodone/Acetaminophen) 7.5 Mg-325 Mg Tablet 1 Tab PO Q4H PRN Reported Aspirin 81 Mg Chew 81 Mg PO EVERY OTHER DAY Potassium Gluconate 595 Mg (99 Mg) Tab 1 Tab-Cap PO DAILY Calcium (Calcium Carbonate) 600 Mg Tab 1,200 Mg PO DAILY Vitamin C (Ascorbic Acid) 1,000 Mg Tablet.er 1 Tab PO DAILY Magnesium 200 Mg Tab 250 Mg PO DAILY Vitamin D3 (Cholecalciferol) 1,000 Unit Tab 1,000 Units PO DAILY Vitamin B-12 (Cyanocobalamin) 1,000 Mcg Tab 1,000 Mcg PO DAILY Atorvastatin (Atorvastatin Calcium) 20 Mg Tab 20 Mg PO HS Enalapril (Enalapril Maleate) 10 Mg Tab 10 Mg PO DAILY Omeprazole 20 Mg Tab 20 Mg PO DAILY Levothyroxine (Levothyroxine Sodium) 88 Mcg Tab 88 Mcg PO DAILY Review of Systems Except as stated in HPI: all other systems reviewed are Neg General / Constitutional: No: Fever, Chills HENT: No: Headaches, Lightheadedness Cardiovascular: No: Chest Pain or Discomfort, Palpitations Respiratory: Positive: Shortness of Breath, No: Cough, Wheezing Gastrointestinal: Positive: Constipation (Large bowel movement today after several days with no bowel movement), No: Nausea, Vomiting, Abdominal Pain Genitourinary: No: Urgency, Dysuria Musculoskeletal: Positive: Weakness (Generalized), Pain (Left knee surgical site) Skin: No Rash, No Other (No drainage from the surgical site) Neurologic: Positive: Weakness (Generalized), No: Headache Physical Exam Narrative GENERAL: Well-developed well-nourished female in no acute respiratory distress on my examination. SKIN: Focused skin assessment warm/dry. HEAD: Atraumatic. Normocephalic. EYES: No scleral icterus. No injection or drainage. ENT: No nasal bleeding or discharge. Mucous membranes pink and moist. NECK: Trachea midline. Supple. CARDIOVASCULAR: Tachycardic with a rate of 107. No murmurs appreciated. RESPIRATORY: No accessory muscle use. Bilateral basilar rales. No rhonchi appreciated. GASTROINTESTINAL: Abdomen soft, non-tender, nondistended. Hepatic and splenic margins not palpable. MUSCULOSKELETAL: No obvious deformities. On examination the patient's surgical site, there is no drainage or increased redness. There is postoperative edema. No calf tenderness. No palpable cords. NEUROLOGICAL: Awake and alert. No obvious cranial nerve deficits. Motor grossly within normal limits. Normal speech. PSYCHIATRIC: Appropriate mood and affect; insight and judgment normal. Data Data Last Documented VS Vital Signs Date Time Temp Pulse Resp B/P (MAP) Pulse Ox O2 Delivery O2 Flow Rate FiO2 11/22/17 11:18 98.0 99 22 175/77 (109) 96 Nasal Cannula 4.00 Orders Orders Complete Blood Count With Diff (11/22/17 08:02) Comprehensive Metabolic Panel (11/22/17 08:02) Cath For Specimen (11/22/17 08:02) Chest, Single Ap (11/22/17 08:02) Iv Access Insert/Monitor (11/22/17 08:02) Ecg Monitoring (11/22/17 08:02) Oximetry (11/22/17 08:02) Ct Pulmonary Angiogram (11/22/17 09:04) Comprehensive Metabolic Panel (11/22/17 09:40) Blood Glucose (11/22/17 09:50) Iohexol 350 Inj (Omnipaque 350 Inj) (11/22/17 10:17) Lactic Acid Sepsis Protocol (11/22/17 10:45) Blood Culture (11/22/17 10:56) Ceftriaxone Inj (Rocephin Inj) (11/22/17 11:00) Azithromycin Inj (Zithromax Inj) (11/22/17 11:00) Urinalysis - C+S If Indicated (11/22/17 10:58) Admit Order (Ed Use Only) (11/22/17 11:21) Labs Laboratory Tests Test 11/22/17 08:00 11/22/17 09:40 White Blood Count 13.2 TH/MM3 Red Blood Count 3.57 MIL/MM3 Hemoglobin 11.3 GM/DL Hematocrit 33.4 % Mean Corpuscular Volume 93.4 FL Mean Corpuscular Hemoglobin 31.7 PG Mean Corpuscular Hemoglobin Concent 34.0 % Red Cell Distribution Width 15.0 % Platelet Count 263 TH/MM3 Mean Platelet Volume 6.9 FL Neutrophils (%) (Auto) 92.5 % Lymphocytes (%) (Auto) 1.0 % Monocytes (%) (Auto) 5.0 % Eosinophils (%) (Auto) 0.4 % Basophils (%) (Auto) 1.1 % Neutrophils # (Auto) 12.2 TH/MM3 Lymphocytes # (Auto) 0.1 TH/MM3 Monocytes # (Auto) 0.7 TH/MM3 Eosinophils # (Auto) 0.0 TH/MM3 Basophils # (Auto) 0.2 TH/MM3 CBC Comment AUTO DIFF Differential Total Cells Counted 100 Neutrophils % (Manual) 68 % Band Neutrophils % 22 % Lymphocytes % 3 % Monocytes % 4 % Eosinophils % 1 % Neutrophils # (Manual) 12.1 TH/MM3 Metamyelocytes 2 % Differential Comment FINAL DIFF MANUAL Platelet Estimate NORMAL Platelet Morphology Comment NORMAL Red Cell Morphology Comment NORMAL Hematology Comments Urine Color YELLOW Urine Turbidity CLEAR Urine pH 6.0 Urine Specific [place] 1.017 Urine Protein TRACE mg/dL Urine Glucose (UA) NEG mg/dL Urine Ketones NEG mg/dL Urine Occult Blood SMALL Urine Nitrite NEG Urine Bilirubin NEG Urine Urobilinogen 2.0 MG/DL Urine Leukocyte Esterase NEG Urine RBC LESS THAN 1 /hpf Urine WBC 1 /hpf Urine Mucus FEW /lpf Microscopic Urinalysis Comment CATH-CULT NOT IND Blood Urea Nitrogen 7 MG/DL 12 MG/DL Creatinine 0.32 MG/DL 0.95 MG/DL Random Glucose 60 MG/DL 109 MG/DL Total Protein 3.4 GM/DL 6.6 GM/DL Albumin 1.3 GM/DL 2.6 GM/DL Calcium Level LESS THAN 5.0 MG/DL 8.4 MG/DL Alkaline Phosphatase 32 U/L 61 U/L Aspartate Amino Transf (AST/SGOT) 40 U/L 72 U/L Alanine Aminotransferase (ALT/SGPT) 17 U/L 36 U/L Total Bilirubin 0.5 MG/DL 1.0 MG/DL Sodium Level 148 MEQ/L 135 MEQ/L Potassium Level 2.0 MEQ/L 3.5 MEQ/L Chloride Level 121 MEQ/L 99 MEQ/L Carbon Dioxide Level 18.0 MEQ/L 27.1 MEQ/L Anion Gap 9 MEQ/L 9 MEQ/L Estimat Glomerular Filtration Rate 198 ML/MIN 56 ML/MIN Protein Corrected Calcium 6.6 MG/DL MDM Medical Decision Making Medical Screen Exam Complete: Yes Emergency Medical Condition: Yes Medical Record Reviewed: Yes Differential Diagnosis Pneumonia versus fluid overload versus PE Narrative Course 82-year-old female status post left knee replacement 6 days prior, presents here today with complaints of shortness of breath. Patient is noted to have bilateral interstitial infiltrates left greater than right. White count is 14, 000 with 10% bands. The patient has been started on Rocephin and Zithromax. Since the surgery, she has had progressive weakness and difficulty ambulating at home. Daughter who is an RN has been working with case management to try to get her placed into rehab. There is a call out to the [facility] hospitalist for admission. The patient will be a full admit. Diagnosis Primary Impression: Pneumonia Additional Impressions: leukocytosis with bandemia Weakness s/p left knee replalacment 6 days prior. Admitting Information Admitting Physician Requests: Admit Aidan Mtz MD Nov 22, 2017 08:22
--- NOTE | 2017-11-22 09:08 | RADRPT ---
EXAM DATE/TIME: 11/22/2017 08:12 [facility] COMPARISON: No previous studies available for comparison. INDICATIONS : Short of breath since last evening, no chest pain MEDICAL HISTORY : None. SURGICAL HISTORY : None. ENCOUNTER: Initial ACUITY: 1 day PAIN SCORE: 0/10 LOCATION: Bilateral chest FINDINGS: There is some patchy areas of acinar density in the lateral left midlung. No focal areas of consolid ation. The heart is normal in size. Both hemidiaphragms well delineated. CONCLUSION: Non-consolidative patchy infiltrates in the lateral left lung. Nikhil Sharif MD on November 22, 2017 at 9:05 Board Certified Radiologist. This report was verified electronically.
[2017-11-22 09:12] LABS: ALBUMIN 1.3 GM/DL (3.4-5.0); ALKALINE PHOSPHATASE 32 U/L (45-117); ALT (GPT) 17 U/L (10-53); AST (GOT) 40 U/L (15-37); BLOOD UREA NITROGEN 7 MG/DL (7-18); CHLORIDE 121 MEQ/L (98-107); CREATININE 0.32 MG/DL (0.50-1.00); GLOMERULAR FILTRATION RATE 198 ML/MIN (>89); GLUCOSE,RANDOM 60 MG/DL (74-106); SODIUM (NA) 148 MEQ/L (136-145); TOTAL BILIRUBIN ADULT 0.5 MG/DL (0.2-1.0); TOTAL PROTEIN 3.4 GM/DL (6.4-8.2)
[2017-11-22 09:18] LABS: AUTOMATED NEUTROPHIL # 12.2 TH/MM3 (1.8-7.7); BASOPHIL # 0.2 TH/MM3 (0-0.2); BASOPHIL % 1.1 % (0.0-2.0); EOSINOPHIL % 0.4 % (0.0-4.0); HEMATOCRIT 33.4 % (35.0-46.0); HEMOGLOBIN 11.3 GM/DL (11.6-15.3); LYMPHOCYTE # 0.1 TH/MM3 (1.0-4.8); MEAN CELL VOLUME 93.4 FL (80.0-100.0); MEAN CORPUSCULAR HEMOGLOBIN 31.7 PG (27.0-34.0); MEAN PLATELET VOLUME 6.9 FL (7.0-11.0); MONOCYTE # 0.7 TH/MM3 (0-0.9); NEUT % 92.5 % (16.0-70.0); PLATELET COUNT 263 TH/MM3 (150-450); RED BLOOD COUNT 3.57 MIL/MM3 (4.00-5.30); WHITE BLOOD COUNT 13.2 TH/MM3 (4.0-11.0)
[2017-11-22 09:29] LABS: CALCIUM LESS THAN 5.0 MG/DL (8.5-10.1); CALCIUM-PROTEIN CORRECTED 6.6 MG/DL (8.5-10.1)
[2017-11-22 09:52] LABS: BANDS 22 % (0-6); LYMPHOCYTES 3 % (9-44); METAMYELOCYTES 2 % (0-1); MONOCYTES 4 % (0-8); NEUTROPHIL # MANUAL DIFF 12.1 TH/MM3 (1.8-7.7); POLYS (SEG NEUTROPHILS) 68 % (16-70)
[2017-11-22] MEDS ORDERED: IOHEXOL 350 MG/ML 10 ML VIAL (for RAD DIAG) IVCONTRAST ONE (10:17)
[2017-11-22 10:22] LABS: ALBUMIN 2.6 GM/DL (3.4-5.0); ALKALINE PHOSPHATASE 61 U/L (45-117); ALT (GPT) 36 U/L (10-53); AST (GOT) 72 U/L (15-37); BICARBONATE 27.1 MEQ/L (21.0-32.0); BLOOD UREA NITROGEN 12 MG/DL (7-18); CALCIUM 8.4 MG/DL (8.5-10.1); CHLORIDE 99 MEQ/L (98-107); CREATININE 0.95 MG/DL (0.50-1.00); GLOMERULAR FILTRATION RATE 56 ML/MIN (>89); GLUCOSE,RANDOM 109 MG/DL (74-106); SODIUM (NA) 135 MEQ/L (136-145); TOTAL PROTEIN 6.6 GM/DL (6.4-8.2)
--- NOTE | 2017-11-22 10:36 | RADRPT ---
EXAM DATE/TIME: 11/22/2017 10:08 [facility] COMPARISON: CHEST SINGLE AP, November 22, 2017, 8:12. INDICATIONS : Weakness, shortness of breath. 6 days post-op IV CONTRAST: 73 cc Omnipaque 350 (iohexol) IV RADIATION DOSE: 19.27 CTDIvol (mGy) MEDICAL HISTORY : Hypertension. Gastroesophageal reflux disease. Hernia, hiatal. SURGICAL HISTORY : Tonsillectomy. Cardiac Stent ENCOUNTER: Initial ACUITY: 1 day PAIN SCALE: 2/10 LOCATION: chest TECHNIQUE: Volumetric scanning of the chest was performed using a pulmonary embolism protocol MIP images were re constructed. Using automated exposure control and adjustment of the mA and/or kV according to patien t size, radiation dose was kept as low as reasonably achievable to obtain optimal diagnostic quality images. DICOM format image data is available electronically for review and comparison. Follow-up recommendations for detected pulmonary nodules are based at a minimum on nodule size and pa tient risk factors according to Fleischner Society Guidelines. FINDINGS: PULMONARY ARTERIES: No filling defects are seen in the pulmonary arteries through the segmental level. LUNGS: There are diffuse bilateral interstitial infiltrates in the peripheral one third of both lungs near t he pleural surface. These opacities are more prominent on the left than on the right and correlate w ith the findings chest x-ray. PLEURAE: There is no pleural thickening or pleural effusion. MEDIASTINUM: There is good visualization of the great vessels of the middle mediastinum. No evidence of mediastin al or hilar adenopathy/mass. Moderate-sized hiatus hernia. CONCLUSION: 1. The study is negative for pulmonary embolism. 2. Bilateral peripheral interstitial infiltrates, left greater than right. Nikhil Sharif MD on November 22, 2017 at 10:30 Board Certified Radiologist. This report was verified electronically.
[2017-11-22] MEDS ORDERED: ASPI-516 PO (11:00)
[2017-11-22] MEDS ORDERED: cefTRIAXone INJ 1,000 MG in SODIUM CHLORIDE 0.9% INJ 100 ML IV ONE (11:00)
[2017-11-22] MEDS ORDERED: AZITHROMYCIN INJ 500 MG in SODIUM CHLOR 0.9% 250 ML INJ 250 ML IV ONE (11:00)
[2017-11-22 11:50] LABS: BILIRUBIN, URINE NEG (NEG); BLOOD, URINE SMALL (NEG); GLUCOSE,URINE NEG (NEG); KETONE, URINE NEG (NEG); MUCUS URINE FEW /lpf (OCC); NITRITE,URINE NEG (NEG); URINE COLOR YELLOW (YELLW/STRAW); URINE LEUKOCYTE ESTERASE NEG (NEG)
[2017-11-22 12:04] LABS: LACTIC ACID SEPSIS PROTOCOL 3.3 mmol/L (0.4-2.0)
[2017-11-22] MEDS ORDERED: SENNOSIDES 8.6 MG TAB PO PRN (12:15)
[2017-11-22] MEDS ORDERED: NALOXONE HCL 0.4 MG/ML AMP IV PUSH PRN (12:15)
[2017-11-22] MEDS ORDERED: ACETAMINOPHEN 325 MG TAB PO PRN ×2 (12:15)
[2017-11-22] MEDS ORDERED: MORPHINE SULFATE 2 MG/ML INJ IV PUSH PRN (12:15)
[2017-11-22] MEDS ORDERED: SODIUM CHLORIDE 0.9% FLUSH 10 ML FLUSH IV FLUSH PRN (12:15)
[2017-11-22] MEDS ORDERED: BISACODYL 10 MG SUPP RECTAL PRN (12:15)
[2017-11-22] MEDS ORDERED: LACTULOSE SYRUP 20 GM/30 ML CUP PO PRN (12:15)
[2017-11-22] MEDS ORDERED: RESP: ALBUTEROL 2.5 MG/3 ML NEB (PRN) NEB (12:15)
[2017-11-22] MEDS ORDERED: MAGNESIUM HYDROXIDE SUSP 30 ML CUP PO PRN (12:15)
[2017-11-22] MEDS ORDERED: ONDANSETRON HCL 4 MG/2 ML VIAL IVP PRN (12:15)
[2017-11-22] MEDS ORDERED: ENALAPRILAT 1.25 MG/ML VIAL IV PUSH PRN (12:15)
[2017-11-22] MEDS ORDERED: FUROSEMIDE 40 MG/4 ML VIAL IVP ONE (13:00)
[2017-11-22] MEDS ORDERED: POTASSIUM CHLORIDE 20 MEQ CONTROLLED RELEASE TAB PO ONE (13:00)
[2017-11-22] MEDS: RESP: ALBUTEROL 2.5 MG/3 ML NEB (SCH) INH ×2 (13:00→13:05)
[2017-11-22] MEDS ORDERED: RESP: ALBUTEROL 2.5 MG/IPRATROPIUM 0.5 MG NEB (SCH) INH ONE (13:00)
[2017-11-22] MEDS: HEPARIN SODIUM - SQ 10,000 UNITS/ML VIAL SQ SCH (13:01)
--- NOTE | 2017-11-22 14:44 | HHI.HP ---
HPI Service [facility] Primary Care Physician Asha Lopez MD Admission Diagnosis pneumonia, weakness, recent left knee replacment Diagnoses: Travel History International Travel<30 Days: No Contact w/Intl Traveler <30 Da: No Traveled to Known Affected Are: No Sepsis Criteria SIRS Criteria (2 or more): Heart rate over 90, RR > 20 or PaCO2 < 32, WBC > 52274, < 4000 or > 10% bands Sepsis Criteria (SIRS+source): Infect source susp/known Severe Sepsis (+one): Lactate >2 Criteria Outcome: Meets severe sepsis criteria History of Present Illness This is a 82-year-old female with a history coronary artery disease status post MN, hyperlipidemia, hypertension, GERD and hypothyroidism. Patient underwent elective left knee arthroplasty 6 days ago and discharged home 2 days later. She was brought in by her daughter yesterday to the [place] emergency department because of weakness. It was decided she needed rehabilitation but was unable to arrange because it was the weekend and was then sent back home. According to her daughter, she had progressive weakness and complaint of urinary frequency. She was being treated for UTI with Macrobid. Urine was also noted to be dark. She also complained of constipation and received stool softener and had a bowel movement on the day of admission. Her daughter who is a nurse and stroke navigator here in the hospital noted this am she was tachypneic and patient complained of shortness of breath and chills and brought her to the emergency department where she received IV Rocephin and Zithromax for bilateral pulmonary infiltrates. No PE on CTA. Denies orthopnea, PND, fever, cough, chest pain, wheezing and leg swelling. No history of COPD and heart failure. All of the systems reviewed negative Review of Systems Except as stated in HPI: all other systems reviewed are Neg Past Family Social History Past Medical History As previously mentioned Past Surgical History Coronary stents, cholecystectomy, appendectomy, section, bilateral cataract surgery, tonsillectomy and bilateral hand carpal tunnel surgery Reported Medications Reported Meds & Active Scripts Active Hydrocodone-Acetamin 7.5-325 (Hydrocodone/Acetaminophen) 7.5 Mg-325 Mg Tablet 1 Tab PO Q4H PRN Reported Aspirin 81 Mg Chew 81 Mg PO EVERY OTHER DAY Potassium Gluconate 595 Mg (99 Mg) Tab 1 Tab-Cap PO DAILY Calcium (Calcium Carbonate) 600 Mg Tab 1,200 Mg PO DAILY Vitamin C (Ascorbic Acid) 1,000 Mg Tablet.er 1 Tab PO DAILY Magnesium 200 Mg Tab 250 Mg PO DAILY Vitamin D3 (Cholecalciferol) 1,000 Unit Tab 1,000 Units PO DAILY Vitamin B-12 (Cyanocobalamin) 1,000 Mcg Tab 1,000 Mcg PO DAILY Atorvastatin (Atorvastatin Calcium) 20 Mg Tab 20 Mg PO HS Enalapril (Enalapril Maleate) 10 Mg Tab 10 Mg PO DAILY Omeprazole 20 Mg Tab 20 Mg PO DAILY Levothyroxine (Levothyroxine Sodium) 88 Mcg Tab 88 Mcg PO DAILY Allergies: Coded Allergies: ragweed pollen (Verified Allergy, Intermediate, RHINITIS, 11/22/17) tree and shrub pollen (Verified Allergy, Intermediate, RHINITIS, 11/22/17) Family History No CVA or MN Social History Drinks wine daily quit smoking years ago Physical Exam Vital Signs Vital Signs Date Time Temp Pulse Resp B/P (MAP) Pulse Ox O2 Delivery O2 Flow Rate FiO2 11/22/17 14:16 96 Nasal Cannula 4.00 11/22/17 13:21 99.0 104 24 152/67 (95) 96 Nasal Cannula 4.00 11/22/17 12:19 99.6 104 22 136/82 (100) 96 Nasal Cannula 4.00 11/22/17 11:18 98.0 99 22 175/77 (109) 96 Nasal Cannula 4.00 11/22/17 09:43 99 22 156/67 (96) 96 Nasal Cannula 4.00 11/22/17 09:14 97.8 98 23 134/62 (86) 96 Nasal Cannula 4.00 11/22/17 08:42 102 24 146/64 (91) 96 Nasal Cannula 4.00 11/22/17 08:03 24 96 Nasal Cannula 4.00 11/22/17 07:50 97.8 108 24 152/69 (96) 86 11/22/17 07:50 102 24 96 4.00 Physical Exam GENERAL: This is a well-nourished, well-developed patient, in no apparent distress. She is lethargic but easily arousable answering questions and following commands appropriately SKIN: Warm and dry. Bruise on the left lateral thigh HEAD: Atraumatic. Normocephalic. No temporal or scalp tenderness. EYES: Pupils equal round and reactive. Extraocular motions intact. No scleral icterus. No injection or drainage. ENT: Nose without bleeding, purulent drainage or septal hematoma. Throat without erythema, tonsillar hypertrophy or exudate. Uvula midline. Airway patent. NECK: Trachea midline. No JVD or lymphadenopathy. Supple, nontender, no meningeal signs. CARDIOVASCULAR: Regular rate and rhythm without murmurs, gallops, or rubs. RESPIRATORY: Decreased breath sounds with bilateral basal crackles GASTROINTESTINAL: Abdomen soft, non-tender, nondistended. No guarding. MUSCULOSKELETAL: Extremities without clubbing, cyanosis with bilateral trace leg edema. Left knee with dry dressing wound appears noninfected but surrounding area is warm NEUROLOGICAL: Lethargic easily arousable. Cranial nerves II through XII intact. Motor and sensory grossly within normal limits. Five out of 5 muscle strength in all muscle groups. Normal speech. Laboratory Laboratory Tests Test 11/22/17 08:00 11/22/17 09:40 11/22/17 11:29 11/22/17 13:30 White Blood Count 13.2 Red Blood Count 3.57 Hemoglobin 11.3 Hematocrit 33.4 Mean Corpuscular Volume 93.4 Mean Corpuscular Hemoglobin 31.7 Mean Corpuscular Hemoglobin Concent 34.0 Red Cell Distribution Width 15.0 Platelet Count 263 Mean Platelet Volume 6.9 Neutrophils (%) (Auto) 92.5 Lymphocytes (%) (Auto) 1.0 Monocytes (%) (Auto) 5.0 Eosinophils (%) (Auto) 0.4 Basophils (%) (Auto) 1.1 Neutrophils # (Auto) 12.2 Lymphocytes # (Auto) 0.1 Monocytes # (Auto) 0.7 Eosinophils # (Auto) 0.0 Basophils # (Auto) 0.2 CBC Comment AUTO DIFF Differential Total Cells Counted 100 Neutrophils % (Manual) 68 Band Neutrophils % 22 Lymphocytes % 3 Monocytes % 4 Eosinophils % 1 Neutrophils # (Manual) 12.1 Metamyelocytes 2 Differential Comment FINAL DIFF MANUAL Platelet Estimate NORMAL Platelet Morphology Comment NORMAL Red Cell Morphology Comment NORMAL Hematology Comments Urine Color YELLOW Urine Turbidity CLEAR Urine pH 6.0 Urine Specific [place] 1.017 Urine Protein TRACE Urine Glucose (UA) NEG Urine Ketones NEG Urine Occult Blood SMALL Urine Nitrite NEG Urine Bilirubin NEG Urine Urobilinogen 2.0 Urine Leukocyte Esterase NEG Urine RBC LESS THAN 1 Urine WBC 1 Urine Mucus FEW Microscopic Urinalysis Comment CATH-CULT NOT IND Blood Urea Nitrogen 7 12 Creatinine 0.32 0.95 Random Glucose 60 109 Total Protein 3.4 6.6 Albumin 1.3 2.6 Calcium Level LESS THAN 5.0 8.4 Alkaline Phosphatase 32 61 Aspartate Amino Transf (AST/SGOT) 40 72 Alanine Aminotransferase (ALT/SGPT) 17 36 Total Bilirubin 0.5 1.0 Sodium Level 148 135 Potassium Level 2.0 3.5 Chloride Level 121 99 Carbon Dioxide Level 18.0 27.1 Anion Gap 9 9 Estimat Glomerular Filtration Rate 198 56 Protein Corrected Calcium 6.6 Magnesium Level 1.7 Lactic Acid Level 3.3 3.5 Date/Time Source Procedure Growth Status 11/22/17 11:20 Blood Peripheral Aerobic Blood Culture Pending Received 11/22/17 11:20 Blood Peripheral Anaerobic Blood Culture Pending Received 11/22/17 08:00 Urine Random Urine Legionella Antigen Pending Received 11/22/17 08:00 Urine Random Urine Streptococcus pneumoniae Antigen (M Pending Received Result Diagram: 11/22/17 0800 11/22/17 [address] Angiography 11/22/17 0904 Signed Impressions: Service Date/Time: Wednesday, November 22, 2017 10:08 - CONCLUSION: 1. The study is negative for pulmonary embolism. 2. Bilateral peripheral interstitial infiltrates, left greater than right. Nikhil Sharif MD Chest X-Ray 11/22/17 0802 Signed Impressions: Service Date/Time: Wednesday, November 22, 2017 08:12 - CONCLUSION: Non-consolidative patchy infiltrates in the lateral left lung. Nikhil Sharif MD Caprini VTE Risk Assessment Caprini VTE Risk Assessment: Mod/High Risk (score >= 2) Caprini Risk Assessment Model Point Value = 1 Point Value = 2 Point Value = 3 Point Value = 5 Age 41-60 Minor surgery BMI > 25 kg/m2 Swollen legs Varicose veins or History of unexplained or recurrent spontaneous Oral contraceptives or hormone replacement Sepsis (< 1 month) Serious lung disease, including pneumonia (< 1 month) Abnormal pulmonary function Acute myocardial infarction Congestive heart failure (< 1 month) History of inflammatory bowel disease Medical patient at bed rest Age 61-74 Arthroscopic surgery Major open surgery (> 45 min) Laparoscopic surgery (> 45 min) Malignancy Confined to bed (> 72 hours) Immobilizing plaster cast Central venous access Age >= 75 History of VTE Family history of VTE Factor V Leiden Prothrombin [id number] Lupus anticoagulant Anticardiolipin antibodies Elevated serum homocysteine Heparin-induced thrombocytopenia Other congenital or acquired thrombophilia Stroke (< 1 month) Elective arthroplasty Hip, pelvis, or leg fracture Acute spinal cord injury (< 1 month) Prophylaxis Regimen Total Risk Factor Score Risk Level Prophylaxis Regimen 0-1 Low Early ambulation 2 Moderate Order ONE of the following: *Sequential Compression Device (SCD) *Heparin 5000 units SQ BID 3-4 Higher Order ONE of the following medications: *Heparin 5000 units SQ TID *Enoxaparin/Lovenox 40 mg SQ daily (WT < 150 kg, CrCl > 30 mL/min) *Enoxaparin/Lovenox 30 mg SQ daily (WT < 150 kg, CrCl > 10-29 mL/min) *Enoxaparin/Lovenox 30 mg SQ BID (WT < 150 kg, CrCl > 30 mL/min) AND/OR *Sequential Compression Device (SCD) 5 or more Highest Order ONE of the following medications: *Heparin 5000 units SQ TID (Preferred with Epidurals) *Enoxaparin/Lovenox 40 mg SQ daily (WT < 150 kg, CrCl > 30 mL/min) *Enoxaparin/Lovenox 30 mg SQ daily (WT < 150 kg, CrCl > 10-29 mL/min) *Enoxaparin/Lovenox 30 mg SQ BID (WT < 150 kg, CrCl > 30 mL/min) AND *Sequential Compression Device (SCD) Assessment and Plan Problem List: (1) Pneumonia ICD Code: J18.9 - Pneumonia, unspecified organism Status: Acute Assessment and Plan This is a 82-year-old female who underwent elective left knee arthroplasty 6 days ago and discharged home 2 days later. According to her daughter, she had progressive weakness and complained of shortness of breath and chills and brought her to the emergency department where she received IV Rocephin and Zithromax for bilateral pulmonary infiltrates. No PE on CTA. Denies orthopnea , PND, fever, cough, chest pain, wheezing and leg swelling. No history of COPD and heart failure. Severe sepsis with HAP. Patient has leukocytosis, bandemia, tachypnea and tachycardia. Lactic acid 3.3. Patient did not receive fluid resuscitation because of possible new onset heart failure. Will continue IV Zithromax and switch Rocephin to cefepime. Obtain sputum culture, urinary Legionella and pneumococcal antigen and follow-up blood cultures. Check pro-calcitonin. Albuterol as needed. Possible new onset HF. BNP elevated. Obtain echocardiogram. Elevated AST likely secondary to sepsis and heart failure. Patient also on statin which will be held. Monitor Recent UTI. Repeat urinalysis unremarkable Recent left knee replacement. Consult patient's orthopedic surgeon. Chronic medical conditions of coronary artery disease status post MN, hyperlipidemia, hypertension, GERD and hypothyroidism. Recent stress test was unremarkable per daughter. Continue outpatient medications as appropriate. DVT prophylaxis with SCD and subcu heparin Code Status full Discussed Condition With pt and daughter Orion Bell MD Nov 22, 2017 14:44
[2017-11-22] MEDS ORDERED: RESP: ALBUTEROL 0.63 MG/3 ML NEB (PRN) NEB (14:45)
[2017-11-22] MEDS: RESP: IPRATROPIUM 0.5 MG/2.5 ML NEB NEB SCH ×2 (15:03→19:42)
[2017-11-22] MEDS: RESP: ALBUTEROL 0.63 MG/3 ML NEB (SCH) NEB ×2 (15:03→19:42)
[2017-11-22] MEDS ORDERED: SODIUM CHLOR 0.9% 1000 ML INJ 1,000 ML IV PRN (16:00)
[2017-11-22] MEDS ORDERED: Vancomycin Consult Pharmacy 1 EA OTHER SCH (18:15)
--- NOTE | 2017-11-22 18:35 | PD.CONS ---
[facility] Service Critical Care Medicine Consult Requested By Dr. Bell Reason for Consult Critical care management of pneumonia Primary Care Physician Asha Lopez MD History of Present Illness 82 year-old female past medical history of coronary artery disease with prior myocardial infarction and stents, hyperlipidemia, GERD, hypothyroidism who presented to [facility] emergency department with shortness of breath and weakness. She underwent left knee arthroplasty by Dr. Garland. There was consideration of rehab placement postoperatively but she chose to be discharged home. She was having difficulty ambulating at home and therefore having difficulty with self-care. She also had foul-smelling urine and swelling of her left knee after home PT so her daughter brought her to [facility] emergency department 11/21/17. U/a at that time was negative for infection. She did not meet criteria for admission and they were unable to obtain rehab placement. Her daughter, who is an RN brought her home. This morning her daughter states she was tachypneic and she gave ASA 81 mg X2 because she thought she might have a PE. She also have macrobid x2 doses for urinary frequency and gave her laxatives for constipation which resulted in a large bowel movement. When the patient arrived at [facility] emergency department she was tachypneic. Chest x-ray demonstrated left lower lobe infiltrate. WBC was 13.2, left shift with 22% bands. Lactic acid 3.3. BNP 147, procalcitonin elevated at 6.77. In the emergency department she was given Rocephin, azithromycin, Duoneb x1, albuterol x2, Lasix 40 g IV, potassium chloride 20 mEq by mouth. Lactic acid is up trended and repeat lactic acid is 6.6. Patient was initially admitted to Dr. Bell with [facility] hospitalist however in view of concerning worsening lactic acid trend, [facility] consult is obtained. Patient states she is short of breath but states that it is better than it was earlier. She denies chest pain, cough, sputum production, hemoptysis, abdominal pain, nausea, vomiting, dysuria. She complains of severe thirst. Dr. Bell has ordered fluid replacement and I agree patient needs fluid resusc. Will use Bipap if needed. She had seen Dr. Bajwa prior to her surgery and had undergone nuclear stress which was negative. Review of Systems Constitutional: COMPLAINS OF: Chills, DENIES: Fever Respiratory: COMPLAINS OF: Shortness of breath Gastrointestinal: DENIES: Abdominal pain, Nausea, Vomiting Musculoskeletal: COMPLAINS OF: Joint Swelling Neurologic: DENIES: Headache Past Family Social History Allergies: Coded Allergies: ragweed pollen (Verified Allergy, Intermediate, RHINITIS, 11/22/17) tree and shrub pollen (Verified Allergy, Intermediate, RHINITIS, 11/22/17) Past Medical History Coronary artery disease with prior myocardial infarction in 1997 Hypothyroidism Hiatal hernia GERD Hyperlipidemia Vitamin D deficiency Former tobacco abuse Reportedly no prior pulmonary disease Past Surgical History Left knee arthroplasty 11/16/17 (Dr. Simone Garland) Cholecystectomy Appendectomy Coronary stent Bilateral cataracts Bilateral carpal tunnel repair Tonsillectomy Reported Medications Atorvastatin 20 mill grams by mouth daily at bedtime Enalapril 10 g by mouth daily Aspirin 81 mg every other day Hydrocodone 7.5 one tab by mouth every 4 hours as seen for pain Calcium carbonate 1200 mg by mouth daily Magnesium 250 mill grams by mouth daily Omeprazole 20 mg by mouth daily Levothyroxine 88 g by mouth daily B-12 1000 g by mouth daily Vitamin C 1000 mg by mouth daily Vitamin D3 1000 units by mouth daily Family History Mother at age 97 of natural causes Father at age 61 from myocardial infarction. Social History Previous one pack per day smoker. Quit in 1997 Drinks wine daily No illicit drug use Physical Exam Vital Signs Vital Signs Date Time Temp Pulse Resp B/P (MAP) Pulse Ox O2 Delivery O2 Flow Rate FiO2 11/22/17 18:07 95 24 113/56 (75) 97 Nasal Cannula 3.00 11/22/17 14:53 99.1 102 25 119/67 (84) 97 Nasal Cannula 4.00 11/22/17 14:16 96 Nasal Cannula 4.00 11/22/17 13:21 99.0 104 24 152/67 (95) 96 Nasal Cannula 4.00 11/22/17 12:19 99.6 104 22 136/82 (100) 96 Nasal Cannula 4.00 11/22/17 11:18 98.0 99 22 175/77 (109) 96 Nasal Cannula 4.00 11/22/17 09:43 99 22 156/67 (96) 96 Nasal Cannula 4.00 11/22/17 09:14 97.8 98 23 134/62 (86) 96 Nasal Cannula 4.00 11/22/17 08:42 102 24 146/64 (91) 96 Nasal Cannula 4.00 11/22/17 08:03 24 96 Nasal Cannula 4.00 11/22/17 07:50 97.8 108 24 152/69 (96) 86 11/22/17 07:50 102 24 96 4.00 Physical Exam GENERAL: Well-nourished, well-developed patient sitting up in ED stretcher, tachypneic. SKIN: Warm and dry. HEAD: Atraumatic. Normocephalic. EYES: Pupils equal and round, 3mm and reactive. . No scleral icterus. No injection or drainage. ENT: No nasal bleeding or discharge. Mucous membranes dry. NECK: Trachea midline. No JVD. CARDIOVASCULAR: Regular rate and rhythm. No murmurs rubs or gallops. RESPIRATORY: Tachypneic. Appears dyspneic but no accessory muscle use. Rales bibasilar. No wheeze. GASTROINTESTINAL: Abdomen soft, non-tender, nondistended. Bowel sounds present. MUSCULOSKELETAL: Extremities without clubbing, cyanosis. . Left leg elevated, mild swelling. Dressing in place left knee. No erythema, warmth, drainage. NEUROLOGICAL: Awake and alert. No obvious cranial nerve deficits. Motor grossly within normal limits. Normal speech. Oriented x3. Laboratory Laboratory Tests Test 11/22/17 08:00 11/22/17 09:40 11/22/17 11:29 11/22/17 13:30 White Blood Count 13.2 Red Blood Count 3.57 Hemoglobin 11.3 Hematocrit 33.4 Mean Corpuscular Volume 93.4 Mean Corpuscular Hemoglobin 31.7 Mean Corpuscular Hemoglobin Concent 34.0 Red Cell Distribution Width 15.0 Platelet Count 263 Mean Platelet Volume 6.9 Neutrophils (%) (Auto) 92.5 Lymphocytes (%) (Auto) 1.0 Monocytes (%) (Auto) 5.0 Eosinophils (%) (Auto) 0.4 Basophils (%) (Auto) 1.1 Neutrophils # (Auto) 12.2 Lymphocytes # (Auto) 0.1 Monocytes # (Auto) 0.7 Eosinophils # (Auto) 0.0 Basophils # (Auto) 0.2 CBC Comment AUTO DIFF Differential Total Cells Counted 100 Neutrophils % (Manual) 68 Band Neutrophils % 22 Lymphocytes % 3 Monocytes % 4 Eosinophils % 1 Neutrophils # (Manual) 12.1 Metamyelocytes 2 Differential Comment FINAL DIFF MANUAL Platelet Estimate NORMAL Platelet Morphology Comment NORMAL Red Cell Morphology Comment NORMAL Hematology Comments Urine Color YELLOW Urine Turbidity CLEAR Urine pH 6.0 Urine Specific [place] 1.017 Urine Protein TRACE Urine Glucose (UA) NEG Urine Ketones NEG Urine Occult Blood SMALL Urine Nitrite NEG Urine Bilirubin NEG Urine Urobilinogen 2.0 Urine Leukocyte Esterase NEG Urine RBC LESS THAN 1 Urine WBC 1 Urine Mucus FEW Microscopic Urinalysis Comment CATH-CULT NOT IND Blood Urea Nitrogen 7 12 Creatinine 0.32 0.95 Random Glucose 60 109 Total Protein 3.4 6.6 Albumin 1.3 2.6 Calcium Level LESS THAN 5.0 8.4 Alkaline Phosphatase 32 61 Aspartate Amino Transf (AST/SGOT) 40 72 Alanine Aminotransferase (ALT/SGPT) 17 36 Total Bilirubin 0.5 1.0 Sodium Level 148 135 Potassium Level 2.0 3.5 Chloride Level 121 99 Carbon Dioxide Level 18.0 27.1 Anion Gap 9 9 Estimat Glomerular Filtration Rate 198 56 Protein Corrected Calcium 6.6 Magnesium Level 1.7 B-Type Natriuretic Peptide 147 Procalcitonin 6.77 Lactic Acid Level 3.3 3.5 Test 11/22/17 16:57 Lactic Acid Level 6.6 Date/Time Source Procedure Growth Status 11/22/17 11:20 Blood Peripheral Aerobic Blood Culture Pending Received 11/22/17 11:20 Blood Peripheral Anaerobic Blood Culture Pending Received 11/22/17 14:45 Nasal Washing Influenza Types A,B Antigen (DESHAWN) - Final NEGATIVE FOR FLU A AND B ANTIGEN.... Complete 11/22/17 08:00 Urine Random Urine Legionella Antigen Pending Received 11/22/17 08:00 Urine Random Urine Streptococcus pneumoniae Antigen (M Pending Received Result Diagram: 11/22/17 0800 11/22/17 0940 Septic Shock Reassessment Septic shock perfusion: reassessment completed Assessment and Plan Assessment and Plan NEURO: Postoperative pain Oxycodone as needed for pain. RESP: Acute HCAP Former history of tobacco abuse CT chest 11/22 - negative for PE. Bilateral interstitial infiltrates. Patient may have underlying interstitial lung disease but denies known history of this. Now with superimposed pneumonia, antibiotics as per below. Albuterol/Atrovent 4 times a day. Albuterol every 2 hours as needed for wheezing. Pulmonology following, Dr. Shin. Planning for pulmonary function testing as outpatient. CV: Coronary artery disease with prior myocardial infarction and stent HTN Hyperlipidemia Hold enalapril 10 mg by mouth daily for now in the setting of sepsis and risk for acute kidney injury. Continue atorvastatin 20 mg by mouth daily. Continue aspirin 81 mg every other day. Serial lactic acid. Normal saline 250 L per hour for 1 L. Then continued at 125 mL per hour. Follow-up 2-D echo GI: GERD Hiatal hernia Continue Protonix 20 mg by mouth daily FEN/RENAL: Insert Heart to allow hourly monitoring of urine output as a marker of perfusion given presence of severe sepsis. Monitor electrolyte and replace as indicated per ICU electrolyte replacement protocol. B-12/vitamin C/ D3 supplementation. ID: HCAP Leukocytosis Influenza negative. Initially received azithromycin and Rocephin in the emergency department. Is currently on cefepime and azithromycin which will continue. Follow up blood culture and urine culture. Obtain urine Legionella and pneumococcal antigens. HEME: Chronic anemia with superimposed acute anemia following expected operative losses. Monitor CBC ENDO: Hypothyroidism Continue Synthroid 88 g by mouth daily MSK: Left knee arthroplasty 11/16/17 Dr. Garland Noted orthopedics has been consulted, follow-up recommendations PROPH: SCDs for DVT prophylaxis. Will stop heparin subcutaneous and use Lovenox 40 mg subcutaneous daily for DVT prophylaxis. Protonix 20 mg by mouth daily for stress ulcer prophylaxis and history of GERD ACCESS: Patient has a peripheral IV. May need central venous line placement which I have discussed with patients daughter Discussed with Dr. Bell and Dr. Mtz. Patient's daughter was updated at bedside. Questions answered. Full code Level III consult Joanne Iraheta MD Nov 22, 2017 18:35
[2017-11-22] MEDS ORDERED: VANCOMYCIN INJ 1,500 MG in SODIUM CHLORID 0.9% 500 ML INJ 500 ML IV ONE (18:45)
[2017-11-22] MEDS ORDERED: SODIUM CHLOR 0.9% 1000 ML INJ 1,000 ML IV SCH ×2 (19:00→23:45)
[2017-11-22] MEDS: DOCUSATE SODIUM 50 MG/SENNA 8.6 MG TAB PO SCH (21:00)
--- NOTE | 2017-11-22 22:52 | EKG ---
Date Performed: 11/22/2017 Time Performed: 07:58:00 PTAGE: 82 years EKG: SINUS TACHYCARDIA LOW QRS VOLTAGE IN PRECORDIAL LEADS INFERIOR MYOCARDIAL INFARCTION ST DEP RESSION, CONSIDER SUBENDOCARDIAL INJURY ABNORMAL ECG NO PREVIOUS TRACING DOCTOR: Alex Cavanaugh Interpretating Date/Time 11/22/2017 22:48:31
[2017-11-22] MEDS: CEFEPIME INJ 2,000 MG in SODIUM CHLORIDE 0.9% INJ 100 ML IV SCH (22:57)
[2017-11-22] MEDS: SODIUM CHLORIDE 0.9% FLUSH 10 ML FLUSH IV FLUSH SCH (22:57)
[2017-11-23] VITALS (13 sets, daily range): BP systolic 105–139; BP diastolic 52–64; PULSE 82–105; RESP 16–20; TEMP 98.4–100.1; O2SAT 94–99
[2017-11-23 01:09] LABS: AMORPHOUS SEDIMENT, URINE RARE; BACTERIA, URINE OCC /hpf; BILIRUBIN, URINE NEG (NEG); BLOOD, URINE TRACE (NEG); GLUCOSE,URINE NEG (NEG); KETONE, URINE NEG (NEG); MUCUS URINE FEW /lpf (OCC); NITRITE,URINE NEG (NEG); SQUAMOUS EPITHELIAL CELL URINE <1 /hpf (0-5); URINE COLOR LIGHT-YELLOW (YELLW/STRAW); URINE LEUKOCYTE ESTERASE NEG (NEG)
[2017-11-23] MEDS: HEPARIN SODIUM - SQ 10,000 UNITS/ML VIAL SQ SCH (01:22)
[2017-11-23 01:36] LABS: INTERNATIONAL NORMALIZED RATIO 1.1 RATIO; PROTHROMBIN TIME - PATIENT 11.6 SEC (9.8-11.6)
[2017-11-23 05:02] LABS: AUTOMATED NEUTROPHIL # 7.5 TH/MM3 (1.8-7.7); BASOPHIL % 0.2 % (0.0-2.0); EOSINOPHIL # 0.4 TH/MM3 (0-0.4); EOSINOPHIL % 4.4 % (0.0-4.0); HEMATOCRIT 27.7 % (35.0-46.0); HEMOGLOBIN 9.8 GM/DL (11.6-15.3); LYMPH % 4.8 % (9.0-44.0); LYMPHOCYTE # 0.4 TH/MM3 (1.0-4.8); MEAN CELL VOLUME 98.7 FL (80.0-100.0); MEAN CORPUSCULAR HEMOGLOBIN 34.8 PG (27.0-34.0); MEAN CORPUSCULAR HGB CONC 35.3 % (32.0-36.0); MEAN PLATELET VOLUME 6.6 FL (7.0-11.0); MONO % 6.6 % (0.0-8.0); MONOCYTE # 0.6 TH/MM3 (0-0.9); PLATELET COUNT 233 TH/MM3 (150-450); RED BLOOD COUNT 2.81 MIL/MM3 (4.00-5.30)
[2017-11-23 05:21] LABS: ALKALINE PHOSPHATASE 48 U/L (45-117); ALT (GPT) 34 U/L (10-53); AST (GOT) 61 U/L (15-37); BICARBONATE 28.3 MEQ/L (21.0-32.0); BLOOD UREA NITROGEN 11 MG/DL (7-18); CALCIUM 7.5 MG/DL (8.5-10.1); CHLORIDE 106 MEQ/L (98-107); CREATININE 0.74 MG/DL (0.50-1.00); GLOMERULAR FILTRATION RATE 75 ML/MIN (>89); GLUCOSE,RANDOM 123 MG/DL (74-106); SODIUM (NA) 141 MEQ/L (136-145); TOTAL BILIRUBIN ADULT 0.6 MG/DL (0.2-1.0); TOTAL PROTEIN 5.4 GM/DL (6.4-8.2)
[2017-11-23] MEDS: AZITHROMYCIN INJ 500 MG in SODIUM CHLOR 0.9% 250 ML INJ 250 ML IV SCH (06:00)
[2017-11-23] MEDS: LEVOTHYROXINE SODIUM 88 MCG TAB PO SCH (06:00)
--- NOTE | 2017-11-23 06:43 | PD.CONS ---
[facility] Service Orthopedic Surgeons Consult Requested By Reason for Consult Right total knee replacement follow-up. Primary Care Physician Asha Lopez MD Admission Diagnosis pneumonia, weakness, recent left knee replacment Diagnoses: (1) Pneumonia Chief Complaint: Left total knee replacement, postop History of Present Illness This 82-year-old woman had a left total knee arthroplasty carried out by the undersigned on 11/16/2017. She was discharged home with home health care. She apparently was admitted with pneumonia. She is at roughly the appropriate level for postoperative day 7, regarding the total knee. Past Family Social History Past Medical History As previously mentioned Past Surgical History Coronary stents, cholecystectomy, appendectomy, section, bilateral cataract surgery, tonsillectomy and bilateral hand carpal tunnel surgery Allergies: Coded Allergies: ragweed pollen (Verified Allergy, Intermediate, RHINITIS, 11/22/17) tree and shrub pollen (Verified Allergy, Intermediate, RHINITIS, 11/22/17) Active Ordered Medications Current Medications Medications (Trade) Dose Ordered Sig/Harjinder Route Start Time Stop Time Status Last Admin (NS Flush) 2 ml UNSCH PRN IV FLUSH 11/22/17 12:15 (NS Flush) 2 ml BID IV FLUSH 11/22/17 21:00 11/22/17 22:57 Cefepime HCl 2000 mg/Sodium Chloride 100 ml @ 200 mls/hr Q12H IV 11/22/17 21:00 11/22/17 22:57 (Heparin Inj) 5,000 units Q12H SQ 11/22/17 14:00 11/23/17 01:22 (Tylenol) 650 mg Q4H PRN PO 11/22/17 12:15 (Zofran Inj) 4 mg Q6H PRN IVP 11/22/17 12:15 (Tylenol) 650 mg Q6H PRN PO 11/22/17 12:15 (Morphine Inj) 1 mg Q3H PRN IV PUSH 11/22/17 12:15 (Narcan Inj) 0.4 mg UNSCH PRN IV PUSH 11/22/17 12:15 (Alicia-Colace) 1 tab BID PO 11/22/17 21:00 (Milk Of Magnesia Liq) 30 ml Q12H PRN PO 11/22/17 12:15 (Senokot) 17.2 mg Q12H PRN PO 11/22/17 12:15 (Dulcolax Supp) 10 mg DAILY PRN RECTAL 11/22/17 12:15 (Lactulose Liq) 30 ml DAILY PRN PO 11/22/17 12:15 (Aspirin Chew) 81 mg EVERY OTHER DAY PO 11/24/17 09:00 (Vitamin D3) 1,000 units DAILY PO 11/23/17 09:00 (Vitamin B12) 1,000 mcg DAILY PO 11/23/17 09:00 (Vasotec) 10 mg DAILY PO 11/23/17 09:00 Future Hold (Synthroid) 88 mcg DAILY@0600 PO 11/23/17 06:00 11/23/17 06:00 (Vitamin C) 500 mg DAILY PO 11/23/17 09:00 (Oscal) 500 mg DAILY PO 11/23/17 09:00 (Mag-Ox) 400 mg DAILY PO 11/23/17 09:00 (Protonix) 20 mg DAILY PO 11/23/17 09:00 (KCl) 20 meq DAILY PO 11/23/17 09:00 (Vasotec Inj) 1.25 mg Q6H PRN IV PUSH 11/22/17 12:15 (Roxicodone) 5 mg Q4H PRN PO 11/22/17 14:45 (Roxicodone) 7.5 mg Q6H PRN PO 11/22/17 14:45 (Albuterol Neb) 0.63 mg QID NEB NEB 11/22/17 16:00 11/22/17 19:42 (Albuterol Neb) 0.63 mg Q4HR NEB PRN NEB 11/22/17 14:45 (Atrovent Neb) 0.5 mg QID NEB NEB 11/22/17 16:00 11/22/17 19:42 Sodium Chloride 1,000 ml @ 42 mls/hr [id number] PRN IV 11/22/17 16:00 Azithromycin 500 mg/Sodium Chloride 250 ml @ 250 mls/hr Q24H IV 11/23/17 07:00 11/23/17 06:00 Pharmacy Profile Note 0 ml @ 0 mls/hr UNSCH OTHER 11/22/17 18:15 Sodium Chloride 1,000 ml @ 125 mls/hr Q8H IV 11/22/17 23:45 11/23/17 00:01 Reported Meds & Active Scripts Active Hydrocodone-Acetamin 7.5-325 (Hydrocodone/Acetaminophen) 7.5 Mg-325 Mg Tablet 1 Tab PO Q4H PRN Reported Aspirin 81 Mg Chew 81 Mg PO EVERY OTHER DAY Potassium Gluconate 595 Mg (99 Mg) Tab 1 Tab-Cap PO DAILY Calcium (Calcium Carbonate) 600 Mg Tab 1,200 Mg PO DAILY Vitamin C (Ascorbic Acid) 1,000 Mg Tablet.er 1 Tab PO DAILY Magnesium 200 Mg Tab 250 Mg PO DAILY Vitamin D3 (Cholecalciferol) 1,000 Unit Tab 1,000 Units PO DAILY Vitamin B-12 (Cyanocobalamin) 1,000 Mcg Tab 1,000 Mcg PO DAILY Atorvastatin (Atorvastatin Calcium) 20 Mg Tab 20 Mg PO HS Enalapril (Enalapril Maleate) 10 Mg Tab 10 Mg PO DAILY Omeprazole 20 Mg Tab 20 Mg PO DAILY Levothyroxine (Levothyroxine Sodium) 88 Mcg Tab 88 Mcg PO DAILY Family History No CVA or OR Social History Drinks wine daily quit smoking years ago Physical Exam Vital Signs Vital Signs Date Time Temp Pulse Resp B/P (MAP) Pulse Ox O2 Delivery O2 Flow Rate FiO2 11/23/17 04:00 99.2 89 20 134/64 (87) 94 11/23/17 04:00 89 11/23/17 02:00 88 11/23/17 00:00 82 11/23/17 00:00 99.5 82 20 105/52 (69) 95 11/22/17 22:00 93 11/22/17 22:00 99.8 93 111/49 (69) 100 11/22/17 22:00 100 Nasal Cannula 3.00 11/22/17 19:44 97 Nasal Cannula 3.50 11/22/17 19:33 98 18 115/56 (75) 99 Room Air 3.00 11/22/17 18:07 95 24 113/56 (75) 97 Nasal Cannula 3.00 11/22/17 14:53 99.1 102 25 119/67 (84) 97 Nasal Cannula 4.00 11/22/17 14:16 96 Nasal Cannula 4.00 11/22/17 13:21 99.0 104 24 152/67 (95) 96 Nasal Cannula 4.00 11/22/17 12:19 99.6 104 22 136/82 (100) 96 Nasal Cannula 4.00 11/22/17 11:18 98.0 99 22 175/77 (109) 96 Nasal Cannula 4.00 11/22/17 09:43 99 22 156/67 (96) 96 Nasal Cannula 4.00 11/22/17 09:14 97.8 98 23 134/62 (86) 96 Nasal Cannula 4.00 11/22/17 08:42 102 24 146/64 (91) 96 Nasal Cannula 4.00 11/22/17 08:03 24 96 Nasal Cannula 4.00 11/22/17 07:50 97.8 108 24 152/69 (96) 86 11/22/17 07:50 102 24 96 4.00 Physical Exam She is resting comfortably, supine in bed in room 506. The left leg is elevated on folded blankets. The neurovascular status is intact. The dressing is dry and intact. There is no erythema, swelling or evidence of draining. Laboratory Laboratory Tests Test 11/22/17 08:00 11/22/17 09:40 11/22/17 11:29 11/22/17 13:30 White Blood Count 13.2 Red Blood Count 3.57 Hemoglobin 11.3 Hematocrit 33.4 Mean Corpuscular Volume 93.4 Mean Corpuscular Hemoglobin 31.7 Mean Corpuscular Hemoglobin Concent 34.0 Red Cell Distribution Width 15.0 Platelet Count 263 Mean Platelet Volume 6.9 Neutrophils (%) (Auto) 92.5 Lymphocytes (%) (Auto) 1.0 Monocytes (%) (Auto) 5.0 Eosinophils (%) (Auto) 0.4 Basophils (%) (Auto) 1.1 Neutrophils # (Auto) 12.2 Lymphocytes # (Auto) 0.1 Monocytes # (Auto) 0.7 Eosinophils # (Auto) 0.0 Basophils # (Auto) 0.2 CBC Comment AUTO DIFF Differential Total Cells Counted 100 Neutrophils % (Manual) 68 Band Neutrophils % 22 Lymphocytes % 3 Monocytes % 4 Eosinophils % 1 Neutrophils # (Manual) 12.1 Metamyelocytes 2 Differential Comment FINAL DIFF MANUAL Platelet Estimate NORMAL Platelet Morphology Comment NORMAL Red Cell Morphology Comment NORMAL Hematology Comments Urine Color YELLOW Urine Turbidity CLEAR Urine pH 6.0 Urine Specific [place] 1.017 Urine Protein TRACE Urine Glucose (UA) NEG Urine Ketones NEG Urine Occult Blood SMALL Urine Nitrite NEG Urine Bilirubin NEG Urine Urobilinogen 2.0 Urine Leukocyte Esterase NEG Urine RBC LESS THAN 1 Urine WBC 1 Urine Mucus FEW Microscopic Urinalysis Comment CATH-CULT NOT IND Blood Urea Nitrogen 7 12 Creatinine 0.32 0.95 Random Glucose 60 109 Total Protein 3.4 6.6 Albumin 1.3 2.6 Calcium Level LESS THAN 5.0 8.4 Alkaline Phosphatase 32 61 Aspartate Amino Transf (AST/SGOT) 40 72 Alanine Aminotransferase (ALT/SGPT) 17 36 Total Bilirubin 0.5 1.0 Sodium Level 148 135 Potassium Level 2.0 3.5 Chloride Level 121 99 Carbon Dioxide Level 18.0 27.1 Anion Gap 9 9 Estimat Glomerular Filtration Rate 198 56 Protein Corrected Calcium 6.6 Magnesium Level 1.7 Troponin I 0.08 B-Type Natriuretic Peptide 147 Procalcitonin 6.77 Lactic Acid Level 3.3 3.5 Test 11/22/17 16:57 11/22/17 19:09 11/22/17 23:53 11/23/17 01:07 Lactic Acid Level 6.6 2.0 Blood Gas Puncture Site RT RADIAL Blood Gas Patient Temperature 98.6 Blood Gas HCO3 26 Blood Gas Base Excess 2.5 Blood Gas Oxygen Saturation 92 Arterial Blood pH 7.48 Arterial Blood Partial Pressure CO2 35 Arterial Blood Partial Pressure O2 61 Arterial Blood Oxygen Content 14.7 Arterial Blood Carboxyhemoglobin 1.3 Arterial Blood Methemoglobin 0.6 Blood Gas Hemoglobin 11.3 Oxygen Delivery Device NASAL CANNULA Blood Gas Liter Flow 3.5 Urine Color LIGHT-YELLOW Urine Turbidity HAZY Urine pH 6.0 Urine Specific [place] 1.010 Urine Protein NEG Urine Glucose (UA) NEG Urine Ketones NEG Urine Occult Blood TRACE Urine Nitrite NEG Urine Bilirubin NEG Urine Urobilinogen LESS THAN 2.0 Urine Leukocyte Esterase NEG Urine RBC 1 Urine WBC 2 Urine Squamous Epithelial Cells <1 Urine Amorphous Sediment RARE Urine Bacteria OCC Urine Mucus FEW Microscopic Urinalysis Comment CATH-CULTURE IND Prothrombin Time 11.6 Prothromb Time International Ratio 1.1 Activated Partial Thromboplast Time 29.5 Test 11/23/17 04:30 White Blood Count 9.0 Red Blood Count 2.81 Hemoglobin 9.8 Hematocrit 27.7 Mean Corpuscular Volume 98.7 Mean Corpuscular Hemoglobin 34.8 Mean Corpuscular Hemoglobin Concent 35.3 Red Cell Distribution Width 15.0 Platelet Count 233 Mean Platelet Volume 6.6 Neutrophils (%) (Auto) 84.0 Lymphocytes (%) (Auto) 4.8 Monocytes (%) (Auto) 6.6 Eosinophils (%) (Auto) 4.4 Basophils (%) (Auto) 0.2 Neutrophils # (Auto) 7.5 Lymphocytes # (Auto) 0.4 Monocytes # (Auto) 0.6 Eosinophils # (Auto) 0.4 Basophils # (Auto) 0.0 CBC Comment DIFF FINAL Differential Comment Blood Urea Nitrogen 11 Creatinine 0.74 Random Glucose 123 Total Protein 5.4 Albumin 2.0 Calcium Level 7.5 Alkaline Phosphatase 48 Aspartate Amino Transf (AST/SGOT) 61 Alanine Aminotransferase (ALT/SGPT) 34 Total Bilirubin 0.6 Sodium Level 141 Potassium Level 4.0 Chloride Level 106 Carbon Dioxide Level 28.3 Anion Gap 7 Estimat Glomerular Filtration Rate 75 Lactic Acid Level 1.8 Date/Time Source Procedure Growth Status 11/22/17 11:20 Blood Peripheral Aerobic Blood Culture Pending Received 11/22/17 11:20 Blood Peripheral Anaerobic Blood Culture Pending Received 11/22/17 14:45 Nasal Washing Influenza Types A,B Antigen (DESHAWN) - Final NEGATIVE FOR FLU A AND B ANTIGEN.... Complete 11/22/17 23:53 Urine Catheterized Urine Urine Culture Pending Received Result Diagram: 11/23/17 0430 11/23/17 0430 Assessment & Plan Ortho Post Op Day #: 7 Problem List: (1) Status post total left knee replacement ICD Codes: Z96.652 - Presence of left artificial knee joint Assessment and Plan She will continue postoperative care of the knee. A frame and trapeze has been ordered. Dressing changes should be done. If Optifoam AG is available, this should be used. If not, daily dressing changes with Primapore will be used. The Steri- Strips remain in place until postoperative day 14. Thank you for the consultation. I will continue to follow her. Trevon Garland MD (Charles) Nov 23, 2017 06:43
--- NOTE | 2017-11-23 07:46 | MB ---
cc: [facility] DATE OF CONSULTATION 11/22/[address] Bell REASON FOR CONSULTATION Shortness of breath. HISTORY OF PRESENT ILLNESS Ms. Landeros is a pleasant 82-year-old female with a history of coronary artery disease status post GA and stent placed many years ago. The patient underwent left knee replacement and she was discharged six days ago. Her daughter noticed that she was having swelling in her leg and it was more painful. Today she noticed that she was trying to get up and she became suddenly short of breath and was more diaphoretic. Because of these symptoms, she brought her to the hospital. She had a workup done. She had a CT of the chest that shows no pulmonary embolism. It showed bilateral peripheral interstitial infiltrate left greater than right. CBC showed a WBC count of 13.2, hemoglobin 11.3, hematocrit 33.4, MCV 93, platelet count 260. Sodium 135, potassium 3.5, CO2 27, BUN 12, creatinine 0.95. Her lactic acid is increased at 6.6. Blood gas shows pH 7.48, pCO2 35, pO2 61, bicarb 26. Nasal swab is negative for flu antigen. PAST MEDICAL HISTORY Her past medical history significant for: 1. A recent knee replacement. 2. History of coronary artery disease status post stent placed many years ago. 3. History of cholecystectomy when she was 20 years old. 4. Appendectomy 5. 6. Bilateral cataract surgery 7. Tonsillectomy MEDICATIONS She is currently takin. Aspirin 81 mg a day 2. Vitamin D3 1000 units 3. B12 1000 mcg 4. Enalapril 10 mg a day 5. Vitamin C 5000 mg a day 6. Calcium 500 mg daily 7. Protonix 20 mg a day 8. Zithromax 500 mg daily 9. Levothyroxine 88 mcg 10. Cefepime two grams q. 12-hour 11. Vancomycin IV 12. Albuterol/Atrovent nebulizer treatment ALLERGIES RAGWEED POLLEN, TREE AND SHRUB POLLEN. SOCIAL HISTORY She is retired. No history of smoking. No alcohol use. She lives alone. FAMILY HISTORY She is a . She has two daughters, one daughter works in this hospital as a membership coordinator. REVIEW OF SYSTEMS Normally she is up, around, and active and goes to the gym. She has no history of any prior lung problem. No DVT or pulmonary embolism. PHYSICAL EXAM This is a pleasant elderly female mildly short of breath, but not in acute distress. VITAL SIGNS: Blood pressure 115/56, heart rate 90, respiration 18, temperature 99.1. HEENT: Pupils are equal and reactive. Oral mucosa, nasal mucosa normal. NECK: Supple. JVP not raised. CHEST: She has inspiratory rales. CARDIOVASCULAR: S1 and S2 normal. ABDOMEN: Benign. EXTREMITIES: She has swelling in the left need and healing wound on the left knee. COMPUTER HARDWARE DESIGNER: She is alert and oriented times three. No focal deficits. IMPRESSION 1. Interstitial lung infiltrate, likely the patient has underlying interstitial lung disease superimposed pneumonia is a possibility. 2. Left knee replacement 3. Hypertension 4. History of coronary artery disease. PLAN I have discussed with the patient and her daughter. The patient is being admitted to the intensive care unit for sepsis. We will continue antibiotics, check her cultures, supplemental her oxygen. Once she gets better, as an outpatient she will need a complete pulmonary function study. Further treatment will dependent upon the course in the hospital. Thank you, Dr. Bell, for this consult. MD GRISEL Munoz/RACHEL /7:34 PM /7:25 AM
[2017-11-23] MEDS: CHOLECALCIFEROL (VIT D3) 1000 UNIT TAB PO SCH (08:29)
[2017-11-23] MEDS: PANTOPRAZOLE SOD 20 MG DELAYED RELEASE TAB PO SCH (08:29)
[2017-11-23] MEDS: ASCORBIC ACID 500 MG TAB PO SCH (08:29)
[2017-11-23] MEDS: CALCIUM CARBONATE 1.25 GM (CA 500 MG) TAB PO SCH (08:29)
[2017-11-23] MEDS: POTASSIUM CHLORIDE 20 MEQ CONTROLLED RELEASE TAB PO SCH (08:29)
[2017-11-23] MEDS: CYANOCOBALAMIN 1,000 MCG TAB PO SCH (08:30)
[2017-11-23] MEDS: DOCUSATE SODIUM 50 MG/SENNA 8.6 MG TAB PO SCH ×2 (08:30→21:18)
[2017-11-23] MEDS: SODIUM CHLORIDE 0.9% FLUSH 10 ML FLUSH IV FLUSH SCH ×2 (08:30→21:18)
[2017-11-23] MEDS: MAGNESIUM OXIDE 400 MG TAB PO SCH (08:30)
[2017-11-23] MEDS: CEFEPIME INJ 2,000 MG in SODIUM CHLORIDE 0.9% INJ 100 ML IV SCH ×2 (08:30→21:47)
[2017-11-23] MEDS ORDERED: POTASSIUM PHOSPHATE MONOBASIC 500 MG TAB PO/TUBE PRN (08:45)
[2017-11-23] MEDS ORDERED: POTASSIUM CHLOR 40 MEQ PREMIX 100 ML IV PRN ×2 (08:45)
[2017-11-23] MEDS ORDERED: MAGNESIUM OXIDE 400 MG TAB PO PRN (08:45)
[2017-11-23] MEDS ORDERED: POTASSIUM PHOSPHATE INJ 30 MMOL in SODIUM CHLOR 0.9% 250 ML INJ 250 ML IV PRN (08:45)
[2017-11-23] MEDS ORDERED: SODIUM PHOSPHATE INJ 30 MMOL in SODIUM CHLOR 0.9% 250 ML INJ 240 ML IV PRN (08:45)
[2017-11-23] MEDS ORDERED: MAGNESIUM SULFATE INJ 2 GM in SODIUM CHLORIDE 0.9% INJ 96 ML IV PRN (08:45)
[2017-11-23] MEDS ORDERED: POTASSIUM CHLORIDE 25 MEQ EFFERVESCENT TAB PO PRN (08:45)
[2017-11-23] MEDS ORDERED: POTASSIUM PHOSPHATE MONOBASIC 500 MG TAB PO PRN (08:45)
[2017-11-23] MEDS ORDERED: MAGNESIUM SULFATE INJ 4 GM in SODIUM CHLORIDE 0.9% INJ 92 ML IV PRN (08:45)
[2017-11-23] MEDS ORDERED: RESP: ALBUTEROL 2.5 MG/3 ML NEB (PRN) NEB (08:45)
[2017-11-23] MEDS ORDERED: POTASSIUM CHLOR 20 MEQ PREMIX 100 ML IV PRN ×2 (08:45)
[2017-11-23] MEDS ORDERED: ENALAPRIL MALEATE 10 MG TAB PO SCH (09:00)
[2017-11-23] MEDS: RESP: IPRATROPIUM 0.5 MG/2.5 ML NEB NEB SCH ×4 (09:10→20:47)
[2017-11-23] MEDS: RESP: ALBUTEROL 0.63 MG/3 ML NEB (SCH) NEB ×4 (09:10→20:47)
[2017-11-23] MEDS ORDERED: AZITHROMYCIN 250 MG TAB PO SCH (12:00)
[2017-11-23] MEDS: ENOXAPARIN SODIUM 40 MG/0.4 ML SYRINGE SQ SCH (12:44)
--- NOTE | 2017-11-23 15:49 | HHI.PR ---
Subjective Remarks f/U PNA and sepsis. Feeming better less SOB ambulated with PT dw RN and CCM Objective Vitals Vital Signs Date Time Temp Pulse Resp B/P (MAP) Pulse Ox O2 Delivery O2 Flow Rate FiO2 11/23/17 14:00 105 11/23/17 12:00 102 11/23/17 12:00 98.9 102 18 135/60 (85) 96 11/23/17 10:00 99 11/23/17 09:10 94 Nasal Cannula 3.00 11/23/17 08:00 93 11/23/17 08:00 100.1 93 16 139/62 (87) 96 11/23/17 07:00 98 Nasal Cannula 3.00 11/23/17 06:00 94 11/23/17 04:00 99.2 89 20 134/64 (87) 94 11/23/17 04:00 89 11/23/17 02:00 88 11/23/17 00:00 82 11/23/17 00:00 99.5 82 20 105/52 (69) 95 11/22/17 22:00 93 11/22/17 22:00 99.8 93 111/49 (69) 100 11/22/17 22:00 100 Nasal Cannula 3.00 11/22/17 19:44 97 Nasal Cannula 3.50 11/22/17 19:33 98 18 115/56 (75) 99 Room Air 3.00 11/22/17 18:07 95 24 113/56 (75) 97 Nasal Cannula 3.00 I/O 11/22/17 11/22/17 11/22/17 11/23/17 11/23/17 11/23/17 07:00 15:00 23:00 07:00 15:00 23:00 Intake Total 550 ml 1515 ml 580 ml Output Total 200 ml 700 ml 750 ml Balance 350 ml 815 ml -170 ml Intake Oral 200 ml 480 ml IV Total 350 ml 1515 ml 100 ml Output Urine Total 200 ml 700 ml 750 ml # Voids 0 0 # Bowel Movements 0 0 Result Diagram: 11/23/17 0430 11/23/17 [address] Angiography 11/22/17 0904 Signed Impressions: Service Date/Time: Wednesday, November 22, 2017 10:08 - CONCLUSION: 1. The study is negative for pulmonary embolism. 2. Bilateral peripheral interstitial infiltrates, left greater than right. Nikhil Sharif MD Chest X-Ray 11/22/17 0802 Signed Impressions: Service Date/Time: Wednesday, November 22, 2017 08:12 - CONCLUSION: Non-consolidative patchy infiltrates in the lateral left lung. Nikhil Sharif MD Objective Remarks GENERAL: This is a well-nourished, well-developed patient, in no apparent distress. SKIN: Warm and dry. Bruise on the left lateral thigh CARDIOVASCULAR: Regular rate and rhythm without murmurs, gallops, or rubs. RESPIRATORY: Decreased breath sounds with bilateral basal crackles GASTROINTESTINAL: Abdomen soft, non-tender, nondistended. No guarding. MUSCULOSKELETAL: Extremities without clubbing, cyanosis with bilateral trace leg edema. Left knee with dry dressing wound appears noninfected NEUROLOGICAL: Alert. Cranial nerves II through XII intact. Motor and sensory grossly within normal limits. Five out of 5 muscle strength in all muscle groups. Normal speech. Procedures none A/P Problem List: (1) Pneumonia ICD Code: J18.9 - Pneumonia, unspecified organism Status: Acute Assessment and Plan This is a 82-year-old female who underwent elective left knee arthroplasty 6 days ago and discharged home 2 days later. According to her daughter, she had progressive weakness and complained of shortness of breath and chills and brought her to the emergency department where she received IV Rocephin and Zithromax for bilateral pulmonary infiltrates. No PE on CTA. Denies orthopnea , PND, fever, cough, chest pain, wheezing and leg swelling. No history of COPD and heart failure. Septic shock with HAP. Patient has leukocytosis, bandemia, tachypnea and tachycardia. Lactic acid 6.6. Patient clinically improving with IV hydration. Repeat lactic acid 1.8. Continue broad-spectrum antibiotic with IV vancomycin , Zithromax and cefepime. Follow-up cultures negative to date Possible new onset HF status post Lasix in the ED. BNP elevated. Follow-up echocardiogram. Elevated AST likely secondary to sepsis and heart failure. Patient also on statin which will be held. Monitor Recent UTI. Follow-up urine culture Recent left knee replacement. Stable further management per orthopedic surgery Chronic medical conditions of coronary artery disease status post PA, hyperlipidemia, hypertension, GERD and hypothyroidism. Recent stress test was unremarkable per daughter. Continue outpatient medications as appropriate. DVT prophylaxis with SCD and Lovenox PT evaluation Discharge Planning Stable for transfer to telemetry Orion Bell MD Nov 23, 2017 15:49
[2017-11-23] MEDS ORDERED: VANCOMYCIN INJ 1,500 MG in SODIUM CHLORID 0.9% 500 ML INJ 500 ML IV SCH (20:00)
[2017-11-23] MEDS: ATORVASTATIN 20 MG TAB PO SCH (21:18)
[2017-11-24] VITALS (11 sets, daily range): BP systolic 129–150; BP diastolic 57–73; PULSE 74–93; RESP 18–20; TEMP 98–98.7; O2SAT 95–99
[2017-11-24] MEDS: LEVOTHYROXINE SODIUM 88 MCG TAB PO SCH (06:07)
[2017-11-24] MEDS: AZITHROMYCIN INJ 500 MG in SODIUM CHLOR 0.9% 250 ML INJ 250 ML IV SCH (06:08)
--- NOTE | 2017-11-24 08:15 | PD.ORT.PN ---
Subjective Post Op Day #: 8 Subjective Remarks She reports that her knee is doing fairly well. She had very limited physical therapy once yesterday. She reports to me that she still has some wheezing. Range of Motion -10 extension to 90 of flexion Distance Walked 5 feet with physical therapy. Objective Vitals Vital Signs Date Time Temp Pulse Resp B/P (MAP) Pulse Ox O2 Delivery O2 Flow Rate FiO2 11/24/17 04:00 98.2 93 18 150/73 (98) 95 11/24/17 00:34 87 11/24/17 00:24 78 11/24/17 00:00 98.2 90 18 129/71 (90) 98 11/23/17 22:46 18 11/23/17 20:47 96 Nasal Cannula 3.00 11/23/17 20:00 93 11/23/17 20:00 98.4 95 18 119/57 (77) 97 11/23/17 17:00 98.4 93 17 139/63 (88) 99 11/23/17 16:00 98.9 97 18 120/56 (77) 96 11/23/17 16:00 97 11/23/17 14:00 105 11/23/17 12:00 102 11/23/17 12:00 98.9 102 18 135/60 (85) 96 11/23/17 10:00 99 11/23/17 09:10 94 Nasal Cannula 3.00 I/O 11/23/17 11/23/17 11/23/17 11/24/17 11/24/17 11/24/17 07:00 15:00 23:00 07:00 15:00 23:00 Intake Total 580 ml 250 ml 1100 ml 615 ml Output Total 750 ml 1450 ml Balance -170 ml 250 ml -350 ml 615 ml Intake Oral 480 ml IV Total 100 ml 250 ml 1100 ml 615 ml Output Urine Total 750 ml 1450 ml # Voids 2 # Bowel Movements 0 Result Diagram: 11/23/17 0430 11/23/17 0430 Objective Remarks She is resting comfortably, supine in bed, with the left leg elevated on pillows and blankets and the knee flexed. The neurovascular status is intact. There is no erythema. The dressing is dry and intact. Assessment & Plan Ortho Post Op Day #: 8 Problem List: (1) Status post total left knee replacement ICD Codes: Z96.652 - Presence of left artificial knee joint Assessment and Plan She will continue postoperative care of the knee. A frame and trapeze has been ordered. Dressing changes should be done. If Optifoam AG is available, this should be used. If not, daily dressing changes with Primapore will be used. The Steri- Strips remain in place until postoperative day 14. I have discussed patient with the nurse salon manager. She should not have her knee left in a flexed posture on blankets and pillows. This might compromise her extension which is necessary for appropriate angulation. In addition, physical therapy should be done twice daily while hospitalized. I have discussed with the patient avoidance of maintaining a flexed posture. Trevon Garland MD (Charles) Nov 24, 2017 08:15
[2017-11-24] MEDS: RESP: IPRATROPIUM 0.5 MG/2.5 ML NEB NEB SCH ×4 (08:48→19:18)
[2017-11-24] MEDS: RESP: ALBUTEROL 0.63 MG/3 ML NEB (SCH) NEB ×3 (08:48→19:18)
[2017-11-24] MEDS: CYANOCOBALAMIN 1,000 MCG TAB PO SCH (09:00)
[2017-11-24] MEDS ORDERED: ASPIRIN 81 MG CHEW TAB PO SCH (09:00)
[2017-11-24 09:21] LABS: AUTOMATED NEUTROPHIL # 5.9 TH/MM3 (1.8-7.7); BASOPHIL % 0.4 % (0.0-2.0); EOSINOPHIL # 0.7 TH/MM3 (0-0.4); EOSINOPHIL % 8.2 % (0.0-4.0); HEMATOCRIT 26.9 % (35.0-46.0); HEMOGLOBIN 9.2 GM/DL (11.6-15.3); LYMPH % 10.2 % (9.0-44.0); LYMPHOCYTE # 0.8 TH/MM3 (1.0-4.8); MEAN CORPUSCULAR HEMOGLOBIN 33.1 PG (27.0-34.0); MEAN CORPUSCULAR HGB CONC 34.2 % (32.0-36.0); MONO % 7.8 % (0.0-8.0); MONOCYTE # 0.6 TH/MM3 (0-0.9); NEUT % 73.4 % (16.0-70.0); PLATELET COUNT 241 TH/MM3 (150-450); RED BLOOD COUNT 2.77 MIL/MM3 (4.00-5.30); RED CELL DISTRIBUTION WIDTH 15.3 % (11.6-17.2)
[2017-11-24 09:56] LABS: BICARBONATE 26.9 MEQ/L (21.0-32.0); CALCIUM 8.3 MG/DL (8.5-10.1); CREATININE 0.52 MG/DL (0.50-1.00); MAGNESIUM 2.2 MG/DL (1.5-2.5)
[2017-11-24] MEDS: POTASSIUM CHLORIDE 20 MEQ CONTROLLED RELEASE TAB PO SCH (10:10)
[2017-11-24] MEDS: PANTOPRAZOLE SOD 20 MG DELAYED RELEASE TAB PO SCH (10:10)
[2017-11-24] MEDS: CHOLECALCIFEROL (VIT D3) 1000 UNIT TAB PO SCH (10:10)
[2017-11-24] MEDS: CALCIUM CARBONATE 1.25 GM (CA 500 MG) TAB PO SCH (10:10)
[2017-11-24] MEDS: MAGNESIUM OXIDE 400 MG TAB PO SCH (10:11)
[2017-11-24] MEDS: DOCUSATE SODIUM 50 MG/SENNA 8.6 MG TAB PO SCH ×2 (10:11→21:00)
[2017-11-24] MEDS: ASCORBIC ACID 500 MG TAB PO SCH (10:11)
[2017-11-24] MEDS: CEFEPIME INJ 2,000 MG in SODIUM CHLORIDE 0.9% INJ 100 ML IV SCH (10:12)
[2017-11-24] MEDS: SODIUM CHLORIDE 0.9% FLUSH 10 ML FLUSH IV FLUSH SCH ×2 (10:12→21:32)
[2017-11-24] MEDS ORDERED: predniSONE 20 MG TAB PO SCH (10:45)
--- NOTE | 2017-11-24 11:05 | HHI.PR ---
Subjective Remarks Follow-up bilateral pulmonary infiltrates. States she continues to feel better less shortness of breath currently on nasal cannula. Reports of worsening urgency discussed with daughter and nursing staff Objective Vitals Vital Signs Date Time Temp Pulse Resp B/P (MAP) Pulse Ox O2 Delivery O2 Flow Rate FiO2 11/24/17 08:49 96 Nasal Cannula 3.00 11/24/17 08:00 98.0 83 18 132/66 (88) 98 11/24/17 04:00 98.2 93 18 150/73 (98) 95 11/24/17 00:34 87 11/24/17 00:24 78 11/24/17 00:00 98.2 90 18 129/71 (90) 98 11/23/17 22:46 18 11/23/17 20:47 96 Nasal Cannula 3.00 11/23/17 20:00 93 11/23/17 20:00 98.4 95 18 119/57 (77) 97 11/23/17 17:00 98.4 93 17 139/63 (88) 99 11/23/17 16:00 98.9 97 18 120/56 (77) 96 11/23/17 16:00 97 11/23/17 14:00 105 11/23/17 12:00 102 11/23/17 12:00 98.9 102 18 135/60 (85) 96 I/O 11/23/17 11/23/17 11/23/17 11/24/17 11/24/17 11/24/17 07:00 15:00 23:00 07:00 15:00 23:00 Intake Total 580 ml 250 ml 1100 ml 615 ml Output Total 750 ml 1450 ml Balance -170 ml 250 ml -350 ml 615 ml Intake Oral 480 ml IV Total 100 ml 250 ml 1100 ml 615 ml Output Urine Total 750 ml 1450 ml # Voids 2 # Bowel Movements 0 Result Diagram: 11/24/1773511/24/[address] Angiography 11/22/17903 Signed Impressions: Service Date/Time: Wednesday, November 22, 2017 10:08 - CONCLUSION: 1. The study is negative for pulmonary embolism. 2. Bilateral peripheral interstitial infiltrates, left greater than right. Nikhil Sharif MD Chest X-Ray 11/22/17 0802 Signed Impressions: Service Date/Time: Wednesday, November 22, 2017 08:12 - CONCLUSION: Non-consolidative patchy infiltrates in the lateral left lung. Nikhil Sharif MD Objective Remarks GENERAL: This is a well-nourished, well-developed patient, in no apparent distress. SKIN: Warm and dry. Bruise on the left lateral thigh CARDIOVASCULAR: Regular rate and rhythm without murmurs, gallops, or rubs. RESPIRATORY: Decreased breath sounds with mild expiratory wheezes GASTROINTESTINAL: Abdomen soft, non-tender, nondistended. No guarding. MUSCULOSKELETAL: Extremities without clubbing, cyanosis with trace left leg edema. Left knee with dry dressing wound appears noninfected NEUROLOGICAL: Alert. Cranial nerves II through XII intact. Motor and sensory grossly within normal limits. Five out of 5 muscle strength in all muscle groups. Normal speech. Procedures none A/P Problem List: (1) Pneumonia ICD Code: J18.9 - Pneumonia, unspecified organism Status: Acute Assessment and Plan This is a 82-year-old female who underwent elective left knee arthroplasty 6 days ago and discharged home 2 days later. According to her daughter, she had progressive weakness and complained of shortness of breath and chills and brought her to the emergency department where she received IV Rocephin and Zithromax for bilateral pulmonary infiltrates. No PE on CTA. Denies orthopnea , PND, fever, cough, chest pain, wheezing and leg swelling. No history of COPD and heart failure. Septic shock with HAP. Patient has leukocytosis, bandemia, tachypnea and tachycardia. Lactic acid 6.6. Patient clinically improved. Repeat lactic acid 1.8. We will de-escalate antibiotics to p.o. Levaquin. Follow-up cultures negative to date Possible ILD. Continue nebulizations and start short course steroids secondary to wheezing. PFTs per pulmonary. Possible new onset HF status post Lasix in the ED. BNP elevated. Follow-up echocardiogram. Elevated AST likely secondary to sepsis and heart failure. Patient also on statin which will be held. Monitor Recent UTI. Follow-up urine culture negative to date. Continue Ditropan if urgency persist after stopping IVF Recent left knee replacement. Stable further management per orthopedic surgery Chronic medical conditions of coronary artery disease status post [place], hyperlipidemia, hypertension, GERD and hypothyroidism. Recent stress test was unremarkable per daughter. Continue outpatient medications as appropriate. DVT prophylaxis with SCD and Lovenox PT evaluation Discharge Planning Possible discharge to rehab in the morning Orion Bell MD Nov 24, 2017 11:05
[2017-11-24] MEDS: ENOXAPARIN SODIUM 40 MG/0.4 ML SYRINGE SQ SCH (13:10)
--- NOTE | 2017-11-24 13:16 | ECHRPT ---
Indication: HEART FAILURE CONCLUSIONS Normal left ventricular size. Wall thickness is normal. The left ventricular systolic function is low normal with an estimated ejection fraction in the rang e of 50%. Mitral annular calcification is present. BP: 150 / 73 HR: 172 Rhythm: MEASUREMENTS (Male / Female) Normal Values Technical Quality:Good 2D ECHO LV Diastolic Diameter PLAX 3.8 cm 4.2 - 5.9 / 3.9 - 5.3 cm LV Systolic Diameter PLAX 3.1 cm IVS Diastolic Thickness 0.9 cm 0.6 - 1.0 / 0.6 - 0.9 cm LVPW Diastolic Thickness 0.7 cm 0.6 - 1.0 / 0.6 - 0.9 cm LV Relative Wall Thickness 0.4 LA Systolic Diameter LX 3.7 cm 3.0 - 4.0 / 2.7 - 3.8 cm DOPPLER Mitral E Point Velocity 107.0 cm/s Mitral A Point Velocity 93.2 cm/s Mitral E to A Ratio 1.1 TR Peak Velocity 266.0 cm/s TR Peak Gradient 28.3 mmHg FINDINGS LEFT VENTRICLE Normal left ventricular size. Wall thickness is normal. The left ventricular systolic function is low normal with an estimated ejection fraction in the rang e of 50%. RIGHT VENTRICLE Normal right ventricular size and systolic function. LEFT ATRIUM The left atrial size is normal. RIGHT ATRIUM The right atrial size is normal. ATRIAL SEPTUM Normal atrial septal thickness without atrial level shunting by limited color doppler interrogation. AORTA The aortic root and proximal ascending aorta are normal in size on limited imaging. MITRAL VALVE Mitral annular calcification is present. AORTIC VALVE Trileaflet aortic valve. No aortic valve stenosis or regurgitation. TRICUSPID VALVE Structurally normal tricuspid valve. No tricuspid valve stenosis or regurgitation. PULMONARY VALVE The pulmonary valve is not well visualized. VESSELS The inferior vena cava is normal in size. PERICARDIUM No pericardial effusion. Diaz Lacy MD, FACC, FSCAI (Electronically Signed) Final Date:24 November 2017 13:15
[2017-11-24] MEDS ORDERED: PRED20 PO (13:25)
[2017-11-24] MEDS ORDERED: ASPI-516 PO (13:25)
[2017-11-24] MEDS ORDERED: ALBU0.63 NEB (13:25)
[2017-11-24] MEDS ORDERED: LEVA750T9 PO (13:25)
[2017-11-24] MEDS ORDERED: Ipratropium Bromide NEB (13:25)
[2017-11-24] MEDS ORDERED: OXYC-392 PO (13:25)
--- NOTE | 2017-11-24 13:25 | HHI.DCPOC ---
Discharge Care Plan Diagnosis: (1) Pneumonia Your Health Problems Are: Difficulty with ADL Exercise Tolerance Goals to Promote Your Health * To prevent worsening of your condition and complications * To maintain your health at the optimal level Directions to Meet Your Goals Take your medications as prescribed Follow your dietary instruction Follow activity as directed Keep your appointments as scheduled Take your immunizations and boosters as scheduled If your symptoms worsen call your PCP, if no PCP go to Urgent Care Center or Emergency Room Smoking is Dangerous to Your Health. Avoid second hand smoke Call the 24-hour hour crisis hotline for domestic abuse at Orion Bell MD Nov 24, 2017 13:25
[2017-11-24] MEDS ORDERED: LEVOFLOXACIN 750 MG TAB PO SCH (14:00)
[2017-11-24] MEDS: ATORVASTATIN 20 MG TAB PO SCH (21:32)
[2017-11-25] VITALS: BP 134/56; PULSE 82; RESP 18; TEMP 97.8; O2SAT 97
[2017-11-25 01:13] VITALS: PULSE 85
[2017-11-25 04:00] VITALS: BP 132/54; PULSE 78; RESP 18; TEMP 98; O2SAT 97
--- NOTE | 2017-11-25 07:30 | RADRPT ---
EXAM DATE/TIME: 11/25/2017 06:42 [place] COMPARISON: CT PULMONARY ANGIOGRAM, November 22, 2017, 10:08. CHEST SINGLE AP, November 22, 2017, 8:12. INDICATIONS : Cough, short of breath, evaluate pneumonia MEDICAL HISTORY : None. SURGICAL HISTORY : None. ENCOUNTER: Subsequent ACUITY: 2 days PAIN SCORE: 0/10 LOCATION: Bilateral chest FINDINGS: Portable AP view of the chest demonstrates a normal-sized cardiac silhouette with calcification of th e aorta. There are persistent interstitial opacities in the lower lung zones bilaterally. No pleural effusion or pneumothorax is identified. The bones and soft tissues demonstrate no acute finding. CONCLUSION: Stable chest x-ray with interstitial opacities at the lung bases bilaterally. Based on the appearance on prior chest CT, these changes are likely chronic. Otherwise, no focal airspace consolidation is i dentified to indicate a pneumonia. To Garcia MD on November 25, 2017 at 7:26 Board Certified Radiologist. This report was verified electronically.
[2017-11-25] MEDS: ASCORBIC ACID 500 MG TAB PO SCH (07:35)
[2017-11-25] MEDS: CYANOCOBALAMIN 1,000 MCG TAB PO SCH (07:35)
[2017-11-25] MEDS: PANTOPRAZOLE SOD 20 MG DELAYED RELEASE TAB PO SCH (07:35)
[2017-11-25] MEDS: CALCIUM CARBONATE 1.25 GM (CA 500 MG) TAB PO SCH (07:35)
[2017-11-25] MEDS: CHOLECALCIFEROL (VIT D3) 1000 UNIT TAB PO SCH (07:35)
[2017-11-25] MEDS: POTASSIUM CHLORIDE 20 MEQ CONTROLLED RELEASE TAB PO SCH (07:35)
[2017-11-25] MEDS: MAGNESIUM OXIDE 400 MG TAB PO SCH (07:36)
[2017-11-25] MEDS: DOCUSATE SODIUM 50 MG/SENNA 8.6 MG TAB PO SCH (07:36)
[2017-11-25] MEDS: SODIUM CHLORIDE 0.9% FLUSH 10 ML FLUSH IV FLUSH SCH (07:50)
[2017-11-25] MEDS: LEVOTHYROXINE SODIUM 88 MCG TAB PO SCH (08:00)
[2017-11-25 08:08] VITALS: BP 161/72; PULSE 86; RESP 18; TEMP 98.5; O2SAT 97
--- NOTE | 2017-11-25 08:21 | PD.ORT.PN ---
Subjective Post Op Day #: 9 Subjective Remarks She reports that her knee is doing fairly well. She has only walked a limited amount in the room with physical therapy. She still has some shortness of breath. Range of Motion 0 extension to 90 of flexion. Distance Walked 10 feet in the morning and 5 feet, twice in the afternoon with PT. Objective Vitals Vital Signs Date Time Temp Pulse Resp B/P (MAP) Pulse Ox O2 Delivery O2 Flow Rate FiO2 11/25/17 04:00 98.0 78 18 132/54 (80) 97 11/25/17 01:13 85 11/25/17 00:00 97.8 82 18 134/56 (82) 97 11/24/17 20:00 98.2 89 18 139/57 (84) 97 11/24/17 15:37 98.4 74 20 139/62 (87) 99 11/24/17 15:24 95 Nasal Cannula 3.00 11/24/17 12:00 91 11/24/17 12:00 98.7 89 18 150/66 (94) 95 11/24/17 11:56 96 Nasal Cannula 1.00 11/24/17 08:49 96 Nasal Cannula 3.00 I/O 11/24/17 11/24/17 11/24/17 11/25/17 11/25/17 11/25/17 07:00 15:00 23:00 07:00 15:00 23:00 Intake Total 615 ml 480 ml Balance 615 ml 480 ml Intake Oral 480 ml IV Total 615 ml # Voids 5 4 5 8 Result Diagram: 11/24/17 0736 11/24/17 0736 Imaging Last 24 hours Impressions Chest X-Ray 11/25/17 0600 Signed Impressions: Service Date/Time: November 06:42 - CONCLUSION: Stable chest x-ray with interstitial opacities at the lung bases bilaterally. Based on the appearance on prior chest CT, these changes are likely chronic. Otherwise, no focal airspace consolidation is identified to indicate a pneumonia. To Garcia MD Objective Remarks She is sitting out of bed, on the bedside commode with the left knee flexed about 90.. The neurovascular status is intact. There is no erythema. The dressing is dry and intact. Assessment & Plan Ortho Post Op Day #: 9 Problem List: (1) Status post total left knee replacement ICD Codes: Z96.652 - Presence of left artificial knee joint Plan: Continue PT. Assessment and Plan She will continue postoperative care of the knee. A frame and trapeze has been ordered. Dressing changes should be done. The Steri-Strips remain in place until postoperative day 14. Physical therapy should be done twice daily while hospitalized. I have discussed with the patient avoidance of maintaining a flexed posture. When she is discharged, she has an appointment with the undersigned. She was being followed by [facility] as a home health care agency prior to readmission for pneumonia. Arrangements had been made by my office for this prior to her initial admission. Trevon Garland MD (Charles) Nov 25, 2017 08:21
[2017-11-25] MEDS ORDERED: predniSONE 20 MG TAB PO SCH (09:00)
[2017-11-25] MEDS: RESP: ALBUTEROL 0.63 MG/3 ML NEB (SCH) NEB (09:47)
[2017-11-25] MEDS: RESP: IPRATROPIUM 0.5 MG/2.5 ML NEB NEB SCH (09:47)
[2017-11-25 09:48] VITALS: O2SAT 100
[2017-11-25] MEDS ORDERED: LACT PO (11:13)
--- NOTE | 2017-11-25 12:04 | HHI.DS ---
Discharge Summary Admission Date Nov 22, 2017 at 11:24 Discharge Date: Nov 25, 2017 Admitting Diagnosis pneumonia, weakness, recent left knee replacment (1) Pneumonia ICD Code: J18.9 - Pneumonia, unspecified organism Diagnosis: Principal Status: Acute Procedures none Brief History - From Admission This is a 82-year-old female with a history coronary artery disease status post ID, hyperlipidemia, hypertension, GERD and hypothyroidism. Patient underwent elective left knee arthroplasty 6 days ago and discharged home 2 days later. She was brought in by her daughter yesterday to the [place] emergency department because of weakness. It was decided she needed rehabilitation but was unable to arrange because it was the weekend and was then sent back home. According to her daughter, she had progressive weakness and complaint of urinary frequency. She was being treated for UTI with Macrobid. Urine was also noted to be dark. She also complained of constipation and received stool softener and had a bowel movement on the day of admission. Her daughter who is a nurse and stroke navigator here in the hospital noted this am she was tachypneic and patient complained of shortness of breath and chills and brought her to the emergency department where she received IV Rocephin and Zithromax for bilateral pulmonary infiltrates. No PE on CTA. Denies orthopnea, PND, fever, cough, chest pain, wheezing and leg swelling. No history of COPD and heart failure. All of the systems reviewed negative CBC/BMP: 11/24/17 0736 11/24/17 0736 Significant Findings Laboratory Tests Test 11/22/17 13:30 11/22/17 16:57 11/22/17 19:09 11/22/17 22:00 Lactic Acid Level 3.5 mmol/L (0.4-2.0) 6.6 mmol/L (0.4-2.0) Blood Gas Base Excess 2.5 mmol/L (-2-2) Arterial Blood pH 7.48 (7.380-7.420) Arterial Blood Partial Pressure CO2 35 mmHg (38-42) Blood Gas Hemoglobin 11.3 G/DL (12.0-16.0) Test 11/22/17 23:53 11/23/17 01:07 11/23/17 04:30 11/24/17 07:36 Urine Turbidity HAZY (CLEAR) Urine Occult Blood TRACE (NEG) Urine Bacteria OCC /hpf (NONE) Urine Mucus FEW /lpf (OCC) Red Blood Count 2.81 MIL/MM3 (4.00-5.30) 2.77 MIL/MM3 (4.00-5.30) Hemoglobin 9.8 GM/DL (11.6-15.3) 9.2 GM/DL (11.6-15.3) Hematocrit 27.7 % (35.0-46.0) 26.9 % (35.0-46.0) Mean Corpuscular Hemoglobin 34.8 PG (27.0-34.0) Mean Platelet Volume 6.6 FL (7.0-11.0) Neutrophils (%) (Auto) 84.0 % (16.0-70.0) 73.4 % (16.0-70.0) Lymphocytes (%) (Auto) 4.8 % (9.0-44.0) Eosinophils (%) (Auto) 4.4 % (0.0-4.0) 8.2 % (0.0-4.0) Lymphocytes # (Auto) 0.4 TH/MM3 (1.0-4.8) 0.8 TH/MM3 (1.0-4.8) Random Glucose 123 MG/DL (74-106) Total Protein 5.4 GM/DL (6.4-8.2) Albumin 2.0 GM/DL (3.4-5.0) Calcium Level 7.5 MG/DL (8.5-10.1) 8.3 MG/DL (8.5-10.1) Aspartate Amino Transf (AST/SGOT) 61 U/L (15-37) Estimat Glomerular Filtration Rate 75 ML/MIN (>89) Eosinophils # (Auto) 0.7 TH/MM3 (0-0.4) Imaging Last Impressions Chest X-Ray 11/25/17 0600 Signed Impressions: Service Date/Time: November 06:42 - CONCLUSION: Stable chest x-ray with interstitial opacities at the lung bases bilaterally. Based on the appearance on prior chest CT, these changes are likely chronic. Otherwise, no focal airspace consolidation is identified to indicate a pneumonia. To Garcia MD CT Angiography 11/22/17 0904 Signed Impressions: Service Date/Time: Wednesday, November 22, 2017 10:08 - CONCLUSION: 1. The study is negative for pulmonary embolism. 2. Bilateral peripheral interstitial infiltrates, left greater than right. Nikhil Sharif MD PE at Discharge GENERAL: This is a well-nourished, well-developed patient, in no apparent distress. SKIN: Warm and dry. Bruise on the left lateral thigh CARDIOVASCULAR: Regular rate and rhythm without murmurs, gallops, or rubs. RESPIRATORY: Decreased breath sounds with improved expiratory wheezes GASTROINTESTINAL: Abdomen soft, non-tender, nondistended. No guarding. MUSCULOSKELETAL: Extremities without clubbing, cyanosis with trace left leg edema. Left knee with dry dressing wound appears noninfected NEUROLOGICAL: Alert. Cranial nerves II through XII intact. Motor and sensory grossly within normal limits. Five out of 5 muscle strength in all muscle groups. Normal speech. Hospital Course This is a 82-year-old female who underwent elective left knee arthroplasty 6 days ago and discharged home 2 days later. According to her daughter, she had progressive weakness and complained of shortness of breath and chills and brought her to the emergency department where she received IV Rocephin and Zithromax for bilateral pulmonary infiltrates. No PE on CTA. Denies orthopnea , PND, fever, cough, chest pain, wheezing and leg swelling. No history of COPD and heart failure. Septic shock with HAP. Patient has leukocytosis, bandemia, tachypnea and tachycardia. Lactic acid 6.6. Patient clinically improved. Repeat lactic acid 1.8. We will de-escalate antibiotics to p.o. Levaquin. Follow-up cultures negative to date Possible ILD. Stable. Continue nebulizations and short course steroids secondary to wheezing. PFTs per pulmonary. Echocardiogram with EF of 50%. Elevated AST likely secondary to sepsis and heart failure. Patient also on statin which will be held. Monitor Recent UTI. Follow-up urine culture negative to date. Continue Ditropan if urgency persist after stopping IVF Recent left knee replacement. Stable further management per orthopedic surgery Chronic medical conditions of coronary artery disease status post ID, hyperlipidemia, hypertension, GERD and hypothyroidism. Recent stress test was unremarkable per daughter. Continue outpatient medications as appropriate. DVT prophylaxis with SCD and Lovenox Pt Condition on Discharge: Stable Discharge Disposition: Discharge to SNF Discharge Time: > 30 minutes Discharge Instructions DIET: Follow Instructions for: Heart Healthy Diet Activities you can perform: Regular-No Restrictions Activities to Avoid: Driving Follow up Referrals: Orthopedics - 1 Week PCP Follow-up - 2-3 Days Pulmonology - 1 Week New Orders: X-RAY CHEST PA & LAT - 6 Weeks New Medications: Albuterol Neb (Albuterol Neb) 0.63 Mg/3 Ml Neb 0.63 MG NEB BID NEB for Breathing Treatment, #60 NEBULE Lactobacillus Acidophilus (Acidophilus/l-Sporogenes) 35 Million Cell-25 Million Cell Tab 1 TAB PO TID for Bowel Management, #30 TAB Levofloxacin (Levaquin) 750 Mg Tablet 750 MG PO Q24H for Infection, #6 TAB Oxycodone (Oxycodone) 5 Mg Tab 5 MG PO Q4H PRN for pain 3-5, #20 TAB Prednisone (Prednisone) 20 Mg Tab 20 MG PO DAILY for Control Inflammation, #2 TAB [Ipratropium [place]] () 0.5 MG/2.5 ML NEBU 0.5 MG NEB QID NEB for Breathing Treatment, #120 ML Changed Medications: Aspirin (Aspirin) 81 Mg Chew 81 MG PO BID for Prevent Blood Clot, #60 TAB 0 Refills (Changed from: EVERY OTHER DAY; 1) Continued Medications: Ascorbic Acid (Vitamin C) 1,000 Mg Tablet.er 1 TAB PO DAILY Atorvastatin (Atorvastatin) 20 Mg Tab 20 MG PO HS for Cholesterol Management, #30 TAB 0 Refills Calcium Carbonate (Calcium) 600 Mg Tab 1200 MG PO DAILY Cholecalciferol (Vitamin D3) 1,000 Unit Tab 1000 UNITS PO DAILY for Nutritional Supplement, #1 BOTTLE 0 Refills Cyanocobalamin (Vitamin B-12) 1,000 Mcg Tab 1000 MCG PO DAILY for Nutritional Supplement, #1 BOTTLE 0 Refills Enalapril (Enalapril) 10 Mg Tab 10 MG PO DAILY, #30 TAB 0 Refills Levothyroxine (Levothyroxine) 88 Mcg Tab 88 MCG PO DAILY for Thyroid, #30 TAB 0 Refills Magnesium (Magnesium) 200 Mg Tab 250 MG PO DAILY, TAB Omeprazole (Omeprazole) 20 Mg Tab 20 MG PO DAILY, #30 TAB 0 Refills Potassium Gluconate (Potassium Gluconate) 595 Mg (99 Mg) Tab 1 TAB-CAP PO DAILY Discontinued Medications: Hydrocodone/Acetaminophen (Hydrocodone-Acetamin 7.5-325) 7.5 Mg-325 Mg Tablet 1 TAB PO Q4H PRN for PAIN SCALE 1 TO 10, #50 TAB Additional Information Aspirin 81 mg twice a day treatment duration per orthopedic surgery. Prior to this patient was taking 81 mg every other day Orion Bell MD Nov 25, 2017 12:04
[2017-11-25 12:44] VITALS: BP 129/67; PULSE 80; RESP 18; TEMP 98.3; O2SAT 94
[2017-11-25] MEDS ORDERED: LACTOBACILLUS ACIDOPHILUS TAB PO SCH (13:00)
[2017-11-25] MEDS ORDERED: PHARMACY ORDERED LAB ONE (19:45)
--- NOTE | 2017-11-29 17:05 | MD ---
cc: Ailyn BELL ADMISSION DATE: 11/22/2017 DISCHARGE DATE: 11/25/2017 BRIEF HISTORY: Ms. Landeros is an 82-year-old white female who presented with shortness of breath and hypoxemia. She was seen in consultation initially by Dr. Shin on 11/22. She had a CT angiogram because she had had recent knee surgery and she had no evidence of pulmonary embolism but she did have peripheral interstitial infiltrates suggestive of pulmonary fibrosis. She was treated with antibiotics for possible pneumonia and has actually done quite well. She is down to 1-2 liters of oxygen and feels comfortable. On room air her sats have dropped into the low 90s upper 80s so she is being transferred with oxygen to [facility] later today. At the time of this interview she is awake, alert, comfortable, O2 sats are 95-100%. She is afebrile. Her respirations are 16 nonlabored. Chest reveals faint bibasilar rales, otherwise no congestion or wheezing and she has no significant edema. Ms. Landeros presented with probable pneumonia, may have underlying interstitial lung disease. She is being transferred to [facility] today on oxygen. I have asked her to be certain she follows up with Dr. Shin who wanted to schedule her for full pulmonary functions as an outpatient once she is released from the nursing facility. I also asked the nurse to address this in the discharge plan. MD OLAF Owusu/YUDITH /12:39 PM /4:47 PM
== END 2017-11-25 13:45 | DRG 871 ==
LOC: NEPC 07:46 → NEDA 11:24 → NEDH 16:29 → HIMW 21:45 → N05A 11-23 17:32
PROVIDERS: ADMIT Internal Medicine; ATTEND Internal Medicine
DX: A41.9 Sepsis, unspecified organism (principal); J18.9 Pneumonia, unspecified organism; R65.21 Severe sepsis with septic shock; I11.0 Hypertensive heart disease with heart failure; E87.2 Acidosis; I50.9 Heart failure, unspecified; E86.0 Dehydration; D64.9 Anemia, unspecified; T84.84XA Pain due to internal orthopedic prosthetic devices, implants and grafts, initial encounter; K21.9 Gastro-esophageal reflux disease without esophagitis; I25.10 Atherosclerotic heart disease of native coronary artery without angina pectoris; E78.5 Hyperlipidemia, unspecified; E03.9 Hypothyroidism, unspecified; E55.9 Vitamin D deficiency, unspecified; I25.2 Old myocardial infarction; Y95 Nosocomial condition; Z79.82 Long term (current) use of aspirin; Z87.891 Personal history of nicotine dependence; Z95.5 Presence of coronary angioplasty implant and graft; Z96.652 Presence of left artificial knee joint; M19.90 Unspecified osteoarthritis, unspecified site
CPT/HCPCS: 36600; 71045; 71275; 80048; 80053; 81001; 82805; 83605; 83735; 83880; 84145; 84484; 85007; 85025; 85027; 85610; 85730; 87040; 87086; 87449; 87641; 87804; 93005; 93306; 94150; 94640; 94664; 96374; J0456; J0692; J0696; J1644; J1650; J1940; J2270; J2405; J3370; J7030; J7040; J7050; J7512; J7613; J7644; P9612; Q9967

== ENCOUNTER → 2018-02-17 | Outpatient (CLI) | payer OTHER ==
[~2018-02-17] MED LIST changes: +ALBU0.63 NEB; +ASPI-516 PO; -ECASA81 PO; -HYDR-3580 PO; +Ipratropium Bromide NEB; +LACT PO; +LEVA750T9 PO; +OXYC-392 PO; +PRED20 PO
--- NOTE | 2018-02-18 09:50 | RSPPFT ---
DATE OF PROCEDURE: 02/17/18 COMMENTS: Spirometry with FVC of 1.5 at 72% of predicted, FEV1 of 1. At 68%, FEV1/FVC ratio is decreased. Flow is decreased at FEF 25, FEF 50, FEF 75 and FEF 25-75. There is no response after bronchodilator treatment. Lung volumes show residual volume is normal. TLC is normal. Diffusion capacity is normal. Flow volume loop indicates terminal airways obstruction. IMPRESSION: 1. Mild small airways obstructive lung disease. 2. No response after bronchodilator treatment. 3. Normal lung volumes. 4. Normal diffusion capacity.
== END ==
LOC: PHRSP 08:14
PROVIDERS: ATTEND Specialist
DX: I10 Essential (primary) hypertension (principal); J44.9 Chronic obstructive pulmonary disease, unspecified
CPT/HCPCS: 94060; 94726; 94729